=== PATIENT | female | born 1960 | race Caucasian/White ===

== ENCOUNTER → 2019-04-10 11:29 | Outpatient (BNVA) | payer MEDICAID, SELFPAY | PROVIDERS: Family Provider Family Medicine; PCP Family Medicine; Visit Provider Orthopaedic Surgery | DX: M79.605 Pain in left leg (principal); M79.652 Pain in left thigh; S70.12XA Contusion of left thigh, initial encounter; X58.XXXA Exposure to other specified factors, initial encounter | CPT/HCPCS: 73590 ==

== ENCOUNTER 2019-05-28 08:53 | Outpatient (CLI) | payer MEDICAID, SELFPAY ==
--- NOTE | 2019-05-28 | MR_ITS ---
WS: [id number] MR OF THE WITHOUT GADOLINIUM ENHANCEMENT LEFT FEMUR INDICATION: Left leg pain TECHNIQUE: Coronal T1, coronal STIR, sagittal T1, sagittal STIR, axial T2, axial PD, FINDINGS: Normal bone marrow signal in the left femur. No acute fractures. Small suprapatellar effusi on. Normal femoral head and neck. Normal left hip. Normal bone marrow signal in the right hip and fem ur. Soft tissue edema in the left mid thigh extending into the deep soft tissues presumably from prior tr auma with laceration repair. Deep to the subcutaneous edema in the anterior compartment are prominent ovoid shaped T2 hyperintense collections that appear to represent varicosities. 2 prominent adjacent lobular varicosities measure approximately 1.4 x 1.3 x 2.2 cm and 1.1 x 1.4 x 2.2 CM. These demonstr ate T2 hyperintensity with hemosiderin rim. Moderate degenerative arthritis both knees partially visualized worse in the medial joint compartment s. Small left knee effusion with medial compartment narrowing. Mild narrowing of the patellofemoral a rticulation. MR/MR femur LT wo con* [id number] IMPRESSION: 1. Evidence of prior deep soft tissue laceration along the left inner thigh wi th a small amount of subcutaneous edema. 2. Deep to the healed laceration are Two lobular ovoid shaped T2 hyperintense lesions with peripheral hemosiderin. This most likely represents varicosities f rom previous trauma. This can be followed up with ultrasound if continued shailesh rn to assess flow. 3. Bone marrow edema in the femoral shafts and hips bilaterally normal. No acu te fractures. 4. Small left knee effusion with a small amount of edema in the distal femoral condyles. This is partially visualized and likely degenerative. Degenerative a rthritis at the patellofemoral articulation. This could be followed up with kne e MRI if indicated.
== END 2019-05-28 08:54 | disposition home or self-care (01) ==
LOC: RADSHAW 08:54
PROVIDERS: Family Provider Family Medicine; PCP Family Medicine; Visit Provider Family Medicine
DX: M17.12 Unilateral primary osteoarthritis, left knee (principal); M25.462 Effusion, left knee; M79.605 Pain in left leg
CPT/HCPCS: 73718

== ENCOUNTER 2019-12-03 10:38 | Outpatient (CLI) | payer MEDICAID, SELFPAY ==
--- NOTE | 2019-12-03 11:04 | MR_ITS ---
WS: [id number] MRI LUMBAR SPINE NONCONTRAST TECHNIQUE: Sagittal T1, T2 and STIR imaging. Axial T1 and T2 imaging. CLINICAL INFORMATION: FRACTURE COMPARISON: MRI FINDINGS: Mild lumbar curve. No acute compression involving the superior endplate L1 with fracture cleft. No re tropulsion. This is new since 2019. Mild loss vertebral body height. Chronic compression of the T11 v ertebral body with vertebroplasty changes. This is partially visualized. L1-L2: Normal. L2-L3: Mild annular bulging. Slight narrowing of the left subarticular recess. Mild left foraminal na rrowing. Mild facet arthropathy. L3-L4: No significant disc bulging. Mild facet arthropathy. Spinal canal and foramen are patent. L4-L5: Mild annular bulging with slight effacement of the ventral thecal sac. Impingement on the left greater than right traversing L5 nerve roots. Mild facet arthropathy. Foramen are patent. L5-S1: Mild annular bulging. Mild facet arthropathy. Spinal canal and foramen are patent. Visualized pelvic bony structures: Normal. Paravertebral soft tissues: Normal. MR/MR lumbar spine wo con* [id number] IMPRESSION: 1. Mild compression superior endplate L1 with diffuse edema has an acute appea tiffanie. Fracture cleft superior endplate with minimal loss vertebral body height . No retropulsion. This is new since 2019. 2. Mild annular bulging L4-5 with slight narrowing of the left subarticular re cess and encroachment on traversing left L5 nerve root. 3. Moderate facet arthropathy L4-L5 and L5-S1.
== END 2019-12-03 10:39 | disposition home or self-care (01) ==
LOC: RADWPI 10:42
PROVIDERS: Family Provider Family Medicine; PCP Family Medicine; Visit Provider Anesthesiology Pain Medicine
DX: S32.010A Wedge compression fracture of first lumbar vertebra, initial encounter for closed fracture (principal); X58.XXXA Exposure to other specified factors, initial encounter; R60.0 Localized edema; M47.816 Spondylosis without myelopathy or radiculopathy, lumbar region; M47.817 Spondylosis without myelopathy or radiculopathy, lumbosacral region
CPT/HCPCS: 72148

== ENCOUNTER → 2020-06-23 11:37 | Outpatient (BNVA) | payer MEDICAID, SELFPAY | PROVIDERS: PCP Family Medicine; Visit Provider Specialist | DX: M79.605 Pain in left leg (principal) | CPT/HCPCS: 73552; 73590 ==

== ENCOUNTER → 2021-09-16 11:09 | Outpatient (BNVA) | payer MEDICAID, SELFPAY | PROVIDERS: PCP Family Medicine; Referring Provider Nurse Practitioner Family; Visit Provider Podiatrist Foot & Ankle Surgery | DX: M72.2 Plantar fascial fibromatosis (principal); M21.611 Bunion of right foot | CPT/HCPCS: 20550; 20610; 73630; 99203; 99204; J1100; J3301; J3490 ==

== ENCOUNTER 2021-09-16 14:52 | Outpatient (CLI) | payer MEDICAID, SELFPAY | END 2021-09-16 14:53 | disposition home or self-care (01) | LOC: SPT 14:54 | PROVIDERS: PCP Family Medicine; Visit Provider Podiatrist Foot & Ankle Surgery | DX: Z46.89 Encounter for fitting and adjustment of other specified devices (principal); M72.2 Plantar fascial fibromatosis | CPT/HCPCS: 97760; L4397 ==

== ENCOUNTER 2021-11-09 05:34 | Day surgery (SDC) | payer MEDICAID, SELFPAY ==
[2021-11-05 13:10] VITALS: BMI 25.7
[2021-11-09 06:19] VITALS: BP 134/81; PULSE 62; RESP 18; TEMP 36.6; O2SAT 99
[2021-11-09] MEDS: sodium chloride 0.9% 1,000 ML 30 ML IV (06:27)
--- NOTE | 2021-11-09 06:53 | P.ANESASSM_ITS ---
Pre-Anesthetic Assessment Height/Weight: Height 1.6 m Weight 65.771 kg Temp Pulse Resp BP Pulse Ox O2 Del Method 97.8 F 62 18 134/81 99 11/09/21 06:19 11/09/21 06:19 11/09/21 06:19 11/09/21 06:19 11/09/21 06:19 11/09/21 06:19 Preop Diagnosis: Abd Pain Operation Date: 11/09/21 07:00 Proposed Procedures p EGD and colonoscopy [id number],R14.0(Not Applicable) - Alvaro Beverly MD s Colonoscopy(Not Applicable) - Alvaro Beverly MD Was Beta Jenna taken within 24 hours: N/A Was Clonidine taken within 24 hours: N/A Last intake: Intake Last Liquid Date 11/08/21 Last Liquid Time 22:00 Last Solid Date 11/07/21 Last Solid Time 20:00 Social Tobacco and No alcohol 1 pack(s) per day 20 pack years Exam alert, oriented x 3, clear to auscultation bilaterally and regular rate & rhythm Airway Submandibular: within normal limits Mallampati: Class II Dentition: full History/ROS No significant history except as noted Pulmonary None reported CV/HEM Hypertension None reported Hepatic None reported GI abdominal pain Metabolic None reported Musc/skel None reported Neuropsych None reported Anesthetic Plan ASA status: 2 Anesthesia: Anesthesia Evaluation and MAC Medications/Allergies Home Medications Medication Instructions Recorded Confirmed Last Taken Type albuterol 90 mcg/actuation aerosol 108 mcg inhalation .2 puffs PRN 03/07/19 11/05/21 Unknown History inhaler Allergy Symptoms cyclobenzaprine 10 mg tablet 10 mg PO TID PRN Muscle Spasm 03/07/19 11/05/21 Unknown History gabapentin 300 mg capsule 300 mg PO TID 03/07/19 11/09/21 11/09/21 History ibuprofen 800 mg tablet 800 mg PO Q8H PRN Pain 03/07/19 11/05/21 Unknown History ondansetron HCl 4 mg tablet 4 mg PO BID PRN Nausea 03/07/19 11/05/21 Unknown History (Zofran) oxycodone-acetaminophen 10 mg-325 1 tab PO TID PRN Pain 04/10/19 11/05/21 11/08/21 History mg tablet (Percocet) furosemide 20 mg tablet 10 mg PO QAM 09/16/21 11/05/21 Unknown History night splint #1 ea 09/16/21 11/03/21 Unknown Rx omeprazole 40 mg capsule,delayed 40 mg PO DAILY 09/16/21 11/05/21 11/08/21 History release oxybutynin chloride 5 mg tablet 5 mg PO DAILY 09/16/21 11/05/21 Unknown History alprazolam 0.5 mg tablet (Xanax) 0.5 mg PO BID 10/09/21 11/09/21 11/09/21 History azelastine 137 mcg (0.1 %) nasal 2 spray intranasal BID PRN Allergy 10/09/21 11/05/21 Unknown History spray aerosol Symptoms trazodone 100 mg tablet 100 mg PO DAILY 10/09/21 11/09/21 11/07/21 History triamcinolone acetonide 0.5 % 1 applic topical BID PRN Rash 10/09/21 11/05/21 Unknown History topical cream valacyclovir 500 mg tablet 500 mg PO DAILY 10/09/21 11/05/21 11/08/21 History (Valtrex) bupropion HCl 100 mg tablet 200 mg PO DAILY 11/03/21 11/05/21 11/08/21 History bisacodyl 5 mg tablet,delayed 5 mg PO DIRECTED 11/09/21 11/09/21 11/08/21 History release (Dulcolax (bisacodyl)) Allergies Allergy/AdvReac Type Severity Reaction Status Date / Time No Known Allergies Allergy Verified 11/05/21 13:04 Current Medications Generic Name Dose Route Start Last Admin Trade Name Vernq PRN Reason Stop Dose Admin Sodium Chloride 1,000 mls @ 30 mls/hr 11/09/21 06:15 11/09/21 06:27 Sodium Chloride 0.9% IV 11/10/21 06:14 30 mls/hr .Q24H CHRISTINE Administration PFSH Anesthesia Medical History Open fracture of shaft of left tibia Status post fracture of tibia Family History Denies family history of Anesthesia complication Bleeding disorder Social History Smoking and tobacco status: current every day smoker cigarettes Packs smoked per day: 1 Quit status (tobacco): has tried quititng Second hand smoke exposure: Yes Smoking risk assessment/counseling performed?: No Alcohol intake: never Desire information about substance/drug rehabilitation?: No Adopted: No Caregiver/support person: Yes Lives independently: Yes Household members: spouse and significant other Housing: House Marital status: Highest education level completed: High School Graduate service: No Current occupational status: disabled Current occupational exposures/hazards: No Pets and animals: No History of recent travel: No Sexually active: Yes Current gender identity: Female Chela/Anglican: Mormonism Special chela needs: No Agree to transfusion: No Financial difficulty paying for basics: Not Very Hard Data Anesthesia Cardiac Studies: No Data to Display
--- NOTE | 2021-11-09 07:30 | P.HP_ITS ---
Same Day Surgery H&P Indication for Procedure/HPI DATE OF PROCEDURE: November 09, 2021 CHIEF COMPLAINT/INDICATIONFOR SURGICAL PROCEDURE: Screening and abdominal pain. PREOP DIAGNOSIS: Abd Pain PLANNED PROCEDURE: Operation Date: 11/09/21 07:00 Proposed Procedures p EGD and colonoscopy [id number],R14.0(Not Applicable) - Alvaro Beverly MD s Colonoscopy(Not Applicable) - Alvaro Beverly MD Medications/Allergies* Home Medications Medication Instructions Recorded Confirmed Type albuterol 90 mcg/actuation aerosol 108 mcg inhalation .2 puffs PRN 03/07/19 11/05/21 History inhaler Allergy Symptoms cyclobenzaprine 10 mg tablet 10 mg PO TID PRN Muscle Spasm 03/07/19 11/05/21 History gabapentin 300 mg capsule 300 mg PO TID 03/07/19 11/09/21 History ibuprofen 800 mg tablet 800 mg PO Q8H PRN Pain 03/07/19 11/05/21 History ondansetron HCl 4 mg tablet 4 mg PO BID PRN Nausea 03/07/19 11/05/21 History (Zofran) oxycodone-acetaminophen 10 mg-325 1 tab PO TID PRN Pain 04/10/19 11/05/21 History mg tablet (Percocet) furosemide 20 mg tablet 10 mg PO QAM 09/16/21 11/05/21 History omeprazole 40 mg capsule,delayed 40 mg PO DAILY 09/16/21 11/05/21 History release oxybutynin chloride 5 mg tablet 5 mg PO DAILY 09/16/21 11/05/21 History alprazolam 0.5 mg tablet (Xanax) 0.5 mg PO BID 10/09/21 11/09/21 History azelastine 137 mcg (0.1 %) nasal 2 spray intranasal BID PRN Allergy 10/09/21 11/05/21 History spray aerosol Symptoms trazodone 100 mg tablet 100 mg PO DAILY 10/09/21 11/09/21 History triamcinolone acetonide 0.5 % 1 applic topical BID PRN Rash 10/09/21 11/05/21 History topical cream valacyclovir 500 mg tablet 500 mg PO DAILY 10/09/21 11/05/21 History (Valtrex) bupropion HCl 100 mg tablet 200 mg PO DAILY 11/03/21 11/05/21 History bisacodyl 5 mg tablet,delayed 5 mg PO DIRECTED 11/09/21 11/09/21 History release (Dulcolax (bisacodyl)) Allergies/Adverse Reactions Allergy/AdvReac Type Severity Reaction Status Date / Time No Known Allergies Allergy Verified 11/05/21 13:04 Current Medications: Generic Name Dose Route Start Last Admin Trade Name Ami PRN Reason Stop Dose Admin Sodium Chloride 1,000 mls @ 30 mls/hr 11/09/21 06:15 11/09/21 06:27 Sodium Chloride 0.9% IV 11/10/21 06:14 30 mls/hr .Q24H CHRISTINE Administration Pertinent History/Comorbid Conditions* Medical History (Updated 11/03/21 @ 13:56 by Alvaro Beverly MD) Open fracture of shaft of left tibia Status post fracture of tibia Family History (Updated 03/07/19 @ 12:23 by Nieves Hartley RN) Denies family history of Anesthesia complication Bleeding disorder Social History Smoking and tobacco status: current every day smoker cigarettes Packs smoked per day: 1 Quit status (tobacco): has tried quititng Second hand smoke exposure: Yes Smoking risk assessment/counseling performed?: No Alcohol intake: never Desire information about substance/drug rehabilitation?: No Adopted: No Caregiver/support person: Yes Lives independently: Yes Household members: spouse and significant other Housing: House Marital status: Highest education level completed: High School Graduate service: No Current occupational status: disabled Current occupational exposures/hazards: No Pets and animals: No History of recent travel: No Sexually active: Yes Current gender identity: Female Chela/Restorationist: Hoahaoism Special chela needs: No Agree to transfusion: No Financial difficulty paying for basics: Not Very Hard Pertinent Exam Findings alert, oriented x 3, clear to auscultation bilaterally, regular rate & rhythm, operative site marked and procedure specific exam findings Recommendations Surgery/Procedure today Coding Level of Care Code Acute Camera Control Operator for Maldonado Mantilla
[2021-11-09 07:52] VITALS: BP 130/77; PULSE 71; RESP 16; TEMP 36.1; O2SAT 97
[2021-11-09 08:07] VITALS: BP 134/92; PULSE 67; RESP 18; O2SAT 100
--- NOTE | 2021-11-09 08:59 | XRR_ITS ---
PROCEDURE INFORMATION: Exam: XR Abdomen Exam date and time: 11/09/2021 9:18 AM Age: 60 years old Clinical indication: Abdominal pain; Generalized; Additional info: Pain post colonoscopy TECHNIQUE: Imaging protocol: Radiologic exam of the abdomen. Views: Frontal supine view of the abdomen. 1 View. COMPARISON: CT chest abd pel w con* 12/05/2018 7:45 PM FINDINGS: Gastrointestinal tract: Mild gaseous distention of small and large bowel loops. Bones/joints: Changes of prior vertebral augmentation of a lower thoracic vertebral body. XR/XR abdomen 1V* [id number] IMPRESSION: Mild gaseous distention of small and large bowel loops may reflect an ileus.
--- NOTE | 2021-11-09 09:00 | PC.NURSE ---
Pt c/o abdominal pain post egd/colon, abd. soft bowel sounds active. Had small BM after colon. Denies passing gas with BM. Dr Beverly assessed pt and ordered xray of abd. Education provided to patient and spouse, verbalized understanding.
--- NOTE | 2021-11-09 09:29 | PC.NURSE ---
Pt will another BM and passing gas on commode. Pt still reports pain, is able to tolerate ice chips and denies nausea. Xray obtained, awaiting results. Rush updated in scope room.
--- NOTE | 2021-11-09 09:55 | PC.NURSE ---
Pt able to pass more air when offered rectal tube per Dr Beverly. Xray negative for free air. Pt taken to personal vehicle via WC with all personal belongings. Verbalized abd. pain improving.
--- NOTE | 2021-11-09 14:07 | ANE.PACU2 ---
Inpatient post-anesthesia follow up: Airway intact: Yes Vital signs: Temperature 97.0 F Pulse Rate 67 Respiratory Rate 18 Blood Pressure 134/92 Pulse Oximetry 100 Oxygen Delivery Me thod Room Air Oxygen Flow Rate 4 Fraction of Inspir ed Oxygen Hydration adequate: Yes Nausea and vomiting: No Pain level: 1 Mental status: Baseline
[2021-11-10 10:17] LABS: H. Pylori / CLO Test Negative
== END 2021-11-09 09:57 | disposition home or self-care (01) ==
PROVIDERS: PCP Family Medicine; Visit Provider Internal Medicine
PROC: 0DJ08ZZ Inspection of Upper Intestinal Tract, Via Natural or Artificial Opening Endoscopic (ICD-10-PCS; CPT 43235; principal; 2021-11-09 07:00)
PROC: 0DJD8ZZ Inspection of Lower Intestinal Tract, Via Natural or Artificial Opening Endoscopic (ICD-10-PCS; CPT 45378; 2021-11-09 07:00)
DX: R14.0 Abdominal distension (gaseous) (principal); K44.9 Diaphragmatic hernia without obstruction or gangrene; K29.70 Gastritis, unspecified, without bleeding; I10 Essential (primary) hypertension; F17.210 Nicotine dependence, cigarettes, uncomplicated
CPT/HCPCS: 43239; 45378; 74018; 87077; J2704; J7030

== ENCOUNTER → 2021-11-25 12:55 | Outpatient (BNVA) | payer MEDICAID, SELFPAY | PROVIDERS: PCP Family Medicine; Visit Provider Podiatrist Foot & Ankle Surgery | DX: M72.2 Plantar fascial fibromatosis (principal) | CPT/HCPCS: 20550; J1100; J3301; J3490 ==

== ENCOUNTER 2021-11-30 14:36 | Observation (INO) | payer MEDICAID, SELFPAY ==
[2021-11-30] VITALS (54 sets, daily range): BP systolic 107–197; BP diastolic 65–86; PULSE 40–149; RESP 14–33; TEMP 36.4–36.6; O2SAT 95–100; BMI 25.7; BMI 27.3
--- NOTE | 2021-11-30 14:45 | XRR_ITS ---
PROCEDURE INFORMATION: Exam: XR Chest Exam date and time: 11/30/2021 3:04 PM Age: 61 years old Clinical indication: Cough and dyspnea; Patient HX: Chest pain, pressure SOB, high BP; Additional info: Dyspnea/cough TECHNIQUE: Imaging protocol: Radiologic exam of the chest. Views: 1 view. COMPARISON: CT chest abd pel w con* 12/05/2018 7:45 PM FINDINGS: Lungs: Lungs are clear bilaterally. Pleural spaces: No pleural effusion. No pneumothorax. Heart/Mediastinum: The cardiac silhouette and mediastinal contours are unremarkable. Bones/joints: Patient has had a prior kyphoplasty procedure at T11. Other findings: Patient has a navel piercing. XR/XR chest 1V portable [id number] IMPRESSION: 1. No acute cardiopulmonary process. 2. Incidental/nonacute findings are listed in the report.
--- NOTE | 2021-11-30 14:45 | ECG_ITS ---
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 Measurements Intervals [place] Rate: 78 P: 64 MI: 153 QRS: 32 QRSD: 83 T: 42 QT: 383 QTc: 438 Interpretive Statements SINUS RHYTHM WITH FREQUENT ECTOPIC PREMATURE COMPLEXES IN A BIGEMINAL PATTERN ABNORMAL RHYTHM ECG Compared to ECG 12/05/2018 22:19:50 T-wave abnormality no longer present Electronically Signed On 11-30-2021 21:25:38 CDT by Mark Solis M.D. [email or web address] Venturesmer[facility].Shake/store/OM/[id number]
[2021-11-30 15:06] LABS: Basophils # 0.1 10^3/uL (0.0-0.1); Basophils % 0.8 %; Eosinophils # 0.1 10^3/uL (0.0-0.8); Eosinophils % 1.3 %; Hematocrit 49.6 % (37.0-47.0); Hemoglobin 16.1 g/dL (11.5-15.3); Lymphocytes % 39.6 %; Mean Corpuscular HGB Conc 32.5 g/dL (30.0-36.0); Mean Corpuscular Hemoglobin 31.1 pg (28.0-34.0); Mean Corpuscular Volume 95.8 fl (81-99); Mean Platelet Volume 10.3 fL (7.4-10.4); Monocytes # 0.5 10^3/uL (0.2-0.9); Monocytes % 7.2 %; Neutrophils # 3.81 10^3/uL (1.8-7.7); Neutrophils % 50.7 %; Nucleated Red Blood Cells % 0 %; Platelet Count 300 10^3/cmm (130-400); Red Blood Count 5.18 10^6/uL (4.1-5.3); Red Cell Distribution Width 13.2 % (12.1-15.1); White Blood Count 7.5 10^3/uL (4.0-10.0)
--- NOTE | 2021-11-30 15:17 | W.ED.CHESTPA ---
HPI - Chest Pain General: Chief Complaint: Chest Pain Stated Complaint: Sent from ENT dizzy/sob/chest pressure Time Seen by Provider: 11/30/21 14:44 Source: patient Mode of arrival: ambulatory History of Present Illness: 61-year-old male presents emergency room complaining of bradycardia. She went to ENT today and was complaining some dizziness shortness of breath chest discomfort. When I evaluated her baseline vitals they found her heart rate in the 40s she was complaining of some dizziness and chest discomfort. She has not had that previously on arrival here [facility] a palpable pulse in the 40s. PFS ED PFSH: Medical History Abdominal bloating Abdominal pain Anxiety and depression Benign liver cyst Coccygodynia Fibromyalgia Genital herpes Hematoma Open fracture of shaft of left tibia Osteoarthritis Status post fracture of tibia Surgical History History of 3 sections History of carpal tunnel repair History of knee surgery (~01/2019) S/P breast augmentation Family History Denies family history of Anesthesia complication Bleeding disorder Social History Smoking and tobacco status: current every day smoker cigarettes Packs smoked per day: 1 Quit status (tobacco): has tried quititng Second hand smoke exposure: Yes Smoking risk assessment/counseling performed?: No Alcohol intake: never Desire information about substance/drug rehabilitation?: No Adopted: No Caregiver/support person: Yes Lives independently: Yes Household members: spouse and significant other Housing: House Marital status: Highest education level completed: High School Graduate service: No Current occupational status: disabled Current occupational exposures/hazards: No Pets and animals: No History of recent travel: No Sexually active: Yes Current gender identity: Female Chela/Anabaptist: Restoration Special chela needs: No Agree to transfusion: No Financial difficulty paying for basics: Not Very Hard Course Vital Signs: Vital signs: Vital Signs Temperature 98 F 11/30/21 14:44 Pulse Rate 40 L 11/30/21 14:44 Respiratory Rate 18 11/30/21 14:44 Blood Pressure 197/65 11/30/21 14:44 Pulse Oximetry 99 11/30/21 14:44 Oxygen Delivery Me thod 11/30/21 14:44 MDM - Chest Pain Medical Decision Making Patient having bigeminy with a effective heart rate in the 30s. Discussed with hospitalist will admit consult cardiology. Dr. Pollock will contact them orders written Medical Records I reviewed the patient's medical records. Lab Data I reviewed the patient's lab results. : 11/30/21 14:55 11/30/21 14:55 Radiology Impressions Chest X-Ray 11/30/21 14:45 IMPRESSION: 1. No acute cardiopulmonary process. 2. Incidental/nonacute findings are listed in the report. Laboratory Results WBC 7.5 10^3/uL (4.0-10.0) 11/30/21 14:55 RBC 5.18 10^6/uL (4.1-5.3) 11/30/21 14:55 Hgb 16.1 g/dL (11.5-15.3) H 11/30/21 14:55 Hct 49.6 % (37.0-47.0) H 11/30/21 14:55 MCV 95.8 fl (81-99) 11/30/21 14:55 MCH 31.1 pg (28.0-34.0) 11/30/21 14:55 MCHC 32.5 g/dL (30.0-36.0) 11/30/21 14:55 RDW 13.2 % (12.1-15.1) 11/30/21 14:55 Plt Count 300 10^3/cmm (130-400) 11/30/21 14:55 MPV 10.3 fL (7.4-10.4) 11/30/21 14:55 Neut % (Auto) 50.7 % 11/30/21 14:55 Lymph % (Auto) 39.6 % 11/30/21 14:55 [place] % (Auto) 7.2 % 11/30/21 14:55 Eos % (Auto) 1.3 % 11/30/21 14:55 Baso % (Auto) 0.8 % 11/30/21 14:55 Neut # (Auto) 3.81 10^3/uL (1.8-7.7) 11/30/21 14:55 Lymph # (Auto) 3.0 10^3/uL (0.8-4.8) 11/30/21 14:55 [place] # (Auto) 0.5 10^3/uL (0.2-0.9) 11/30/21 14:55 Eos # (Auto) 0.1 10^3/uL (0.0-0.8) 11/30/21 14:55 Baso # (Auto) 0.1 10^3/uL (0.0-0.1) 11/30/21 14:55 Nucleated RBC % (auto) 0 % 11/30/21 14:55 Nucleated RBCs # 0.0 /100WBC 11/30/21 14:55 Sodium 140 mmol/L (136-145) 11/30/21 14:55 Potassium 4.0 mmol/L (3.5-5.1) 11/30/21 14:55 Chloride 101 mmol/L (98-107) 11/30/21 14:55 Carbon Dioxide 24 mmol/L (22-29) 11/30/21 14:55 Anion Gap 19.0 (5-19) 11/30/21 14:55 BUN 15 mg/dL (8-23) 11/30/21 14:55 Creatinine 0.7 mg/dL (0.5-0.9) 11/30/21 14:55 GFR Calculation 85.4 mL/min (90-130) L 11/30/21 14:55 Glucose 75 mg/dL (65-115) 11/30/21 14:55 Calculated Osmolality 290 mOsm/kg (285-295) 11/30/21 14:55 Calcium 10.0 mg/dL (8.5-10.5) 11/30/21 14:55 Total Bilirubin 0.3 mg/dL (0.15-1.2) 11/30/21 14:55 AST 16 U/L (0-32) 11/30/21 14:55 ALT 14 U/L (0-33) 11/30/21 14:55 Alkaline Phosphatase 84 U/L (35-105) 11/30/21 14:55 Troponin T Baseline 7 ng/L (0-10) 11/30/21 14:55 Total Protein 8.1 g/dL (6.6-8.7) 11/30/21 14:55 Albumin 4.2 g/dL (3.5-5.2) 11/30/21 14:55 Globulin 3.9 g/dL (1.3-4.6) 11/30/21 14:55 TSH 3.20 uIU/mL (0.27-4.20) 11/30/21 14:50 Free T4 1.02 ng/dL (0.82-1.77) 11/30/21 14:50 Discharge Plan Discharge Patient Disposition: Placed in Observation Clinical Impression: Bradycardia, Chest pain, Bigeminal rhythm Condition: Stable Prescriptions: No Action gabapentin 300 mg capsule 300 mg PO TID alprazolam [Xanax] 0.5 mg tablet 0.5 mg PO BID oxycodone-acetaminophen [Percocet] 10-325 mg tablet 1 tab PO TID PRN (Reason: Pain) (DME) night splint See Rx Instructions .Route .MEDSUPPLY Qty: 1 0RF Rx Instructions: As directed oxybutynin chloride 5 mg tablet 5 mg PO DAILY bupropion HCl 100 mg tablet 200 mg PO DAILY azelastine 137 mcg (0.1 %) aerosol,spray 2 spray intranasal BID PRN (Reason: Allergy Symptoms) Rx Instructions: administer into each nostril triamcinolone acetonide 0.5 % cream 1 applic topical BID PRN (Reason: Rash) valacyclovir [Valtrex] 500 mg tablet 500 mg PO DAILY bisacodyl [Dulcolax (bisacodyl)] 5 mg tablet,delayed release (DR/EC) 5 mg PO DIRECTED Rx Instructions: 6x a day furosemide 20 mg tablet 20 mg PO DAILY PRN (Reason: Edema) albuterol sulfate 90 mcg/actuation Hfa Aerosol Inhaler 2 puff INHALATION QID PRN (Reason: Shortness Of Breath Or Wheezing) ondansetron 4 mg tablet,disintegrating 4 mg PO BID PRN (Reason: Nausea And Vomiting) cetirizine 10 mg Tablet 10 mg PO DAILY omeprazole 40 mg Capsule,Delayed Release(Dr/Ec) 40 mg PO DAILY Referrals: Tulio Valente [Primary Care Provider] - Coding Level of Care Code 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
[2021-11-30 15:33] LABS: Alanine Aminotransferase 14 U/L (0-33); Albumin Level 4.2 g/dL (3.5-5.2); Alkaline Phosphatase 84 U/L (35-105); Blood Urea Nitrogen 15 mg/dL (8-23); Carbon Dioxide 24 mmol/L (22-29); Chloride 101 mmol/L (98-107); Globulin 3.9 g/dL (1.3-4.6); Glomerular Filtration Rate 85.4 mL/min (90-130); Glucose 75 mg/dL (65-115); Osmolality Calculated 290 mOsm/kg (285-295); Sodium 140 mmol/L (136-145); Total Bilirubin 0.3 mg/dL (0.15-1.2); Total Protein 8.1 g/dL (6.6-8.7)
[2021-11-30 15:34] LABS: Troponin(5th) Baseline 7 ng/L (0-10)
[2021-11-30 15:53] LABS: Aspartate Amino Transferase 16 U/L (0-32)
--- NOTE | 2021-11-30 16:49 | ECG_ITS ---
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 Measurements Intervals [place] Rate: 69 P: 75 MS: 149 QRS: 26 QRSD: 94 T: 34 QT: 396 QTc: 425 Interpretive Statements SINUS RHYTHM WITH FREQUENT VENTRICULAR PREMATURE COMPLEXES IN A BIGEMINAL PATTERN ABNORMAL RHYTHM ECG Compared to ECG 11/30/2021 14:57:06 Ventricular premature complex(es) now present Electronically Signed On 11-30-2021 21:34:51 CDT by Mark Solis M.D. [email or web address]/store/OM/[id number]
[2021-11-30 17:09] LABS: Free T4 Free Thyroxine 1.02 ng/dL (0.82-1.77)
[2021-11-30 17:23] LABS: Add Urine Microscopic? NO; Charge for UA Resulting for Rev
[2021-11-30 17:27] LABS: Bilirubin Urine Neg (Negative); Blood Urine Neg (Negative); Glucose Urine UA Norm (Normal); Ketones Urine Negative (Negative); Leukocyte Esterase Urine Negative (Negative); Nitrate Urine Negative (Negative); Protein Urine Neg (Negative); Specific Gravity, Urine 1.005 (1.005-1.030); Urine Appearance Clear (CLEAR); Urine Color Straw (Yellow); Urobilinogen Urine Norm (Negative); pH Urine 6.5 (5-7)
[2021-11-30 17:30] LABS: Troponin 5 2HR 6.21 ng/L (0-10)
[2021-11-30 17:32] LABS: Troponin 5 2HR Delta -0.79 ABS# (0-10)
--- NOTE | 2021-11-30 18:23 | USCV_ITS ---
Morelia Rapp Age: 61 Gender: F : 1960 Exam Date: 11/30/2021 19:31 Ordering Phys: Salvador Pollock MD Technologist: DARVIN Exam Location: [facility] [place] Indication: bradycardia PVCs, No history of cardiac intervention per patient. BP: 197 / 65 HR: 77 Rhythm: Sinus rhythm with frequent PVCs Technical Quality: Adequate MEASUREMENTS (Male / Female) Normal Values 2D ECHO LV Diastolic Diameter PLAX 4.1 cm 4.2 - 5.9 / 3.9 - 5.3 cm LV Systolic Diameter PLAX 3.2 cm IVS Diastolic Thickness 1.3 cm 0.6 - 1.0 / 0.6 - 0.9 cm IVS Systolic Thickness 1.6 cm LVPW Diastolic Thickness 1.0 cm 0.6 - 1.0 / 0.6 - 0.9 cm LVPW Systolic Thickness 1.2 cm LVOT Diameter 1.7 cm LV Ejection Fraction 2D Teich 46.0 % LV Ejection Fraction MOD 2C 64.9 % LV Ejection Fraction 2C AL 66.1 % LA Diameter 3.6 cm LA Width 2.7 cm LA Height 4.2 cm RA Width 3.2 cm RA Height 3.5 cm Aorta at Sinotubular Diameter 2.6 cm IVC Diameter 1.8 cm M-MODE Aortic Annulus Diameter 2.4 cm LA Ao Ratio MM 1.5 MV E Point Septal Separation 0.4 cm DOPPLER AV Peak Velocity 152.0 cm/s LVOT Peak Velocity 133.0 cm/s AV Area Cont Eq vti 1.8 cm squared AV Area Cont Eq pk 2.0 cm squared MV Peak Velocity 99.0 cm/s MV Area PHT 4.4 cm squared Mitral E to A Ratio 1.1 MV E' Velocity 55.0 cm/s Mitral E to MV E' Ratio 9.7 Mitral E to LV E' Lateral Ratio 9.1 Mitral E to LV E' Septal Ratio 10.3 TR Peak Velocity 221.0 cm/s TR Peak Gradient 19.5 mmHg TV Peak E Velocity 33.0 cm/s Right Atrial Pressure 5.0 mmHg Pulmonary Artery Systolic Pressu 24.5 mmHg PV Peak Velocity 100.0 cm/s RV Acceleration Time 0.1 s RV Ejection Time 0.3 s RV AcT/ET 0.4 FINDINGS Left Ventricle Left ventricle is normal in size. LV systolic function is normal with EF 55 to 60%. No regional wall motion abnormalities are seen Right Ventricle Normal in size and function Right Atrium Normal in size Left Atrium Normal in size Mitral Valve Structurally normal mitral valve. Mild mitral regurgitation Aortic Valve Structurally normal aortic valve. Mild aortic regurgitation. No significant stenosis Tricuspid Valve Mild tricuspid regurgitation. Insufficient TR jet to calculate RVSP. Pulmonic Valve Not well-visualized Pericardium Normal Aorta Normal in size IVC Appears to be normal CONCLUSIONS LV systolic function is normal with EF of 55-60% Mild mitral regurgitation Mild aortic regurgitation Mild tricuspid regurgitation No comparison studies are available Gene Griffin MD (Electronically Signed) Final Date: 01 December 2021 09:27 S
--- NOTE | 2021-11-30 18:35 | P.HP_ITS ---
Providers/Chief Complaint Primary Care Provider: Tulio Valente Chief Complaint: Sent from ENT dizzy/sob/chest pressure History of Present Illness Pleasant 61-year-old lady was referred for elevation injury ER from ENT office where she was found to have low pulse rate. Denies known prior history with abnormal heart rhythms, denies any other cardiac history. Reports that recently has noticed fatiguing easily. Denies any overt symptoms of lightheadedness with standing up or walking. Denies chest pain or pressure. Does state that intermittently falls down, sometimes thinks may lose consciousness for a brief moment waking up when she is already down not remembering falling. Reports that she has been in the morning ever since losing her daughter 11 months ago. Reports after that was started on Wellbutrin, states felt unwell feeling very weak, dizzy after starting Wellbutrin. States that due to how unwell she felt she cut down the dose herself down from 400 mg to 200 mg. She otherwise has been doing with stress after her daughter , but denies other medication changes recently. Denies having any antibiotics recently for sinusitis. Denies any tick bites. In ER she has frequent episodes of bigeminy with sinus beat followed by PVC with compensatory pause, with effective pulse rate 36-40 bpm during the episodes. Does not appear to be lightheaded standing up for a minute or 2, but when sitting down afterward states feeling slow heartbeat in her neck. Review of Systems Const: Reports: fatigue; Denies: fever(s), chills or body aches Eyes: Denies: change in vision, eye discomfort or eye redness ENMT: Reports: nasal congestion and sinus pain; Denies: throat pain, oral sores or ear or mastoid pain Card: Denies: chest pain, edema, pre-syncope or dyspnea on exertion Resp: Denies: dyspnea, productive cough, change in phlegm color or hemoptysis GI: Denies: abdominal pain, nausea, vomiting, diarrhea, constipation, hematochezia or melena : Denies: flank pain, urinary frequency or hematuria Musc: Denies: back pain, joint swelling or joint redness Skin/Breast: Denies: rash or new lesions Neuro: Denies: headache(s), numbness in extremities, weakness in extremities, dizziness, confusion or seizure-like activity Endo: Denies: polyuria or polydipsia Oral/Lymph: Denies: easy bleeding or tender lymph nodes All/Imm: Denies: urticaria or tongue swelling Medications/Allergies Home Medications Medication Instructions Recorded Confirmed Last Taken Type gabapentin 300 mg capsule 300 mg PO TID 03/07/19 11/30/21 11/30/21 History oxycodone-acetaminophen 10 mg-325 1 tab PO TID PRN Pain 04/10/19 11/30/21 11/29/21 History mg tablet (Percocet) night splint #1 ea 09/16/21 11/30/21 Unknown Rx oxybutynin chloride 5 mg tablet 5 mg PO DAILY 09/16/21 11/30/21 Unknown History alprazolam 0.5 mg tablet (Xanax) 0.5 mg PO BID 10/09/21 11/30/21 11/30/21 History azelastine 137 mcg (0.1 %) nasal 2 spray intranasal BID PRN Allergy 10/09/21 11/30/21 Unknown History spray aerosol Symptoms triamcinolone acetonide 0.5 % 1 applic topical BID PRN Rash 10/09/21 11/30/21 Unknown History topical cream valacyclovir 500 mg tablet 500 mg PO DAILY 10/09/21 11/30/21 11/30/21 History (Valtrex) bupropion HCl 100 mg tablet 200 mg PO DAILY 11/03/21 11/30/21 11/30/21 History bisacodyl 5 mg tablet,delayed 5 mg PO DIRECTED 11/09/21 11/30/21 11/30/21 History release (Dulcolax (bisacodyl)) albuterol sulfate 90 mcg/actuation 2 puff inhalation QID PRN 11/30/21 11/30/21 Unknown History aerosol inhaler Shortness Of Breath Or Wheezing cetirizine 10 mg tablet 10 mg PO DAILY 11/30/21 11/30/21 11/30/21 History furosemide 20 mg tablet 20 mg PO DAILY PRN Edema 11/30/21 11/30/21 Unknown History omeprazole 40 mg capsule,delayed 40 mg PO DAILY 11/30/21 11/30/21 11/30/21 History release ondansetron 4 mg disintegrating 4 mg PO BID PRN Nausea And Vomiting 11/30/21 11/30/21 Unknown History tablet Allergies Allergy/AdvReac Type Severity Reaction Status Date / Time No Known Allergies Allergy Verified 11/30/21 15:26 PFSH Acute PFSH: Medical History Abdominal bloating Abdominal pain Anxiety and depression Benign liver cyst Coccygodynia Fibromyalgia Genital herpes Hematoma Open fracture of shaft of left tibia Osteoarthritis Status post fracture of tibia Surgical History History of 3 sections History of carpal tunnel repair History of knee surgery (~01/2019) S/P breast augmentation Family History Denies family history of Anesthesia complication Bleeding disorder Social History Smoking and tobacco status: current every day smoker cigarettes Packs smoked per day: 1 Quit status (tobacco): has tried quititng Second hand smoke exposure: Yes Smoking risk assessment/counseling performed?: No Alcohol intake: never Desire information about substance/drug rehabilitation?: No Adopted: No Caregiver/support person: Yes Lives independently: Yes Household members: spouse and significant other Housing: House Marital status: Highest education level completed: High School Graduate service: No Current occupational status: disabled Current occupational exposures/hazards: No Pets and animals: No History of recent travel: No Sexually active: Yes Current gender identity: Female Chela/Muslim: Zoroastrianism Special chela needs: No Agree to transfusion: No Financial difficulty paying for basics: Not Very Hard Vitals/I&O/Wt Last Vital Signs Temp 98 F 11/30/21 14:44 Pulse 40 L 11/30/21 14:44 Resp 18 11/30/21 14:44 BP 197/65 11/30/21 14:44 Pulse Ox 99 11/30/21 14:44 O2 Del Method 11/30/21 14:44 Weight last 48 hrs Weight 65.771 kg Physical Exam Narrative: at bedside Const: COMMON NORMALS: patient oriented x3 and alert GENERAL APPEARANCE: cooperative ORIENTATION/CONSCIOUSNESS: Yes awake HENMT: COMMON NORMALS: oropharynx normal Neck/C-Spine: COMMON NORMALS: no JVD Resp: COMMON NORMALS: normal respiratory effort and clear to auscultation bilaterally AUSCULTATION: clear to auscultation bilaterally Cardio: COMMON NORMALS: no JVD, regular rhythm, S1 normal heart sound present, S2 normal heart sound present and No murmurs present (Cardio) RHYTHM: abnormal rhythm regularly irregular HEART SOUNDS: S1 normal heart sound present and S2 normal heart sound present GI: COMMON NORMALS: Normal to inspection, nondistended, normoactive bowel sounds present, Soft to palpation and non-tender PALPATION: Yes Soft to palpation Extremity: COMMON NORMALS: no joint enlargement and no pedal edema Neuro: COMMON NORMALS: patient oriented x3 and moves all extremities SENSORIUM/ORIENTATION: Yes alert Skin: COMMON NORMALS: no rashes or lesions noted GENERAL SKIN EXAM: no rashes or lesions noted Data : 11/30/21 14:55 11/30/21 14:55 A&P Assessment and plan (1) Slow pulse: Slow pulse, patient is symptomatic with easy fatigability. Some intermittent palpitations, when sat down after standing with slow pulse/bigeminy states felt her heartbeat in her throat. Complete troponin EKG series, so far not suggestive of ischemia. She is chest pain-free. Potassium is okay, TSH is normal. Discussed with her and her potentially Wellbutrin could contribute to premature beats. Will de-escalate to 100 mg daily, and she would like to stop entirely, discussed with her to stop after 4-5 days and follow-up with primary provider, consider follow-up with [facility] as she has been taking it due to depression after losing her daughter. Monitor on telemetry, will also obtain TTE to assess for structural abnormalities. Discussed with cardiology, appreciate assessment, with consideration of reducing PVCs. (2) Bigeminal rhythm: Plan Sinusitis: Acute versus chronic sinusitis. Will need to revisit ENT for follow- up. For now continue antihistamine as needed, saline spray as needed, Tylenol as needed, for now hold off antibiotic. Attestations Medical Necessity Statement*: Place in observation for additional assessment of low pulse rate, frequent bigeminal episodes, easy fatigability. Coding Level of Care Code Acute Fishing Vessel Operator for Chg Fwd Exam Comprehensive Diagnoses Slow pulse R00.1 Bigeminal rhythm I49.8
[2021-11-30 21:03] LABS: Troponin 5 6HR 6.21 ng/L (0-10)
[2021-11-30 21:17] LABS: Troponin 5 6HR Delta -0.79 ng/L (0-12)
[2021-11-30] MEDS: bisacodyl 5 mg Tablet PO (21:53)
[2021-11-30] MEDS: gabapentin 300 mg Capsule PO (21:53)
[2021-12-01] VITALS (8 sets, daily range): BP systolic 99–180; BP diastolic 53–85; PULSE 40–75; RESP 16–17; TEMP 36.4–37.1; O2SAT 96–100
[2021-12-01] MEDS: ALPRAZolam 0.5 mg Tablet PO ×3 (01:01→18:41)
[2021-12-01] MEDS: nicotine 14 mg Patch 1 PATCH TRANSDERMA ×2 (03:04→16:52)
[2021-12-01 05:21] LABS: Basophils # 0.1 10^3/uL (0.0-0.1); Basophils % 0.8 %; Eosinophils # 0.2 10^3/uL (0.0-0.8); Eosinophils % 2.3 %; Hematocrit 47.9 % (37.0-47.0); Hemoglobin 15.6 g/dL (11.5-15.3); Lymphocytes # 3.1 10^3/uL (0.8-4.8); Lymphocytes % 40.1 %; Mean Corpuscular HGB Conc 32.6 g/dL (30.0-36.0); Mean Corpuscular Hemoglobin 31.2 pg (28.0-34.0); Mean Corpuscular Volume 95.8 fl (81-99); Mean Platelet Volume 11.3 fL (7.4-10.4); Monocytes # 0.7 10^3/uL (0.2-0.9); Monocytes % 8.4 %; Neutrophils # 3.73 10^3/uL (1.8-7.7); Neutrophils % 48.1 %; Nucleated Red Blood Cells % 0 %; Platelet Count 224 10^3/cmm (130-400); Red Cell Distribution Width 13.3 % (12.1-15.1); White Blood Count 7.8 10^3/uL (4.0-10.0)
[2021-12-01] MEDS: acetaminophen 325 mg Tablet 650 MG PO (08:58)
[2021-12-01] MEDS: valACYclovir 1,000 mg Tablet 500 MG PO (08:58)
[2021-12-01] MEDS: cetirizine 10 mg Tablet PO (08:58)
[2021-12-01] MEDS: buPROPion SR (12 HR) 100 mg Tablet PO (08:58)
[2021-12-01] MEDS: gabapentin 300 mg Capsule PO ×3 (08:59→21:09)
[2021-12-01] MEDS: pantoprazole DR 40 mg Tablet PO (08:59)
--- NOTE | 2021-12-01 09:19 | P.CONIM_ITS ---
Providers/Reason For Consult Consulting Physician/Specialty*: Gene Griffin MD/Cardiology Reason for Consult*: Bradycardia/PVCs Requesting Physician: Dr Pollock Attending Physician: Salvador Pollock Primary Care Provider: Tulio Valente History of Present Illness History of Present Illness Morelia Rapp is a 61 year old female with no prior cardiac history was referred from ENT clinic to ER for low heart rate. Patient was found to be in bigeminal rhythm. Patient denies any recent passing out however does feel lightheaded and had presyncopal episodes. She also mentions that occasionally she gets chest pressure with exertion and also gets shortness of breath. Patient was started on Wellbutrin several months ago and since starting that she feels weak and dizzy. Her blood pressure is controlled. Telemetry overnight shows sinus rhythm with bigeminy. Echocardiogram shows normal LV systolic function. Review of Systems Const: Reports: fatigue; Denies: fever(s), chills or body aches Eyes: Denies: change in vision, eye discomfort or eye redness ENMT: Reports: nasal congestion and sinus pain; Denies: throat pain, oral sores or ear or mastoid pain Card: Reports: chest pain; Denies: edema, pre-syncope or dyspnea on exertion Resp: Denies: dyspnea, productive cough, change in phlegm color or hemoptysis GI: Denies: abdominal pain, nausea, vomiting, diarrhea, constipation, hematochezia or melena : Denies: flank pain, urinary frequency or hematuria Musc: Denies: back pain, joint swelling or joint redness Skin/Breast: Denies: rash or new lesions Neuro: Denies: headache(s), numbness in extremities, weakness in extremities, dizziness, confusion or seizure-like activity Endo: Denies: polyuria or polydipsia Oral/Lymph: Denies: easy bleeding or tender lymph nodes All/Imm: Denies: urticaria or tongue swelling Medications/Allergies Home Medications Medication Instructions Recorded Confirmed Last Taken Type gabapentin 300 mg capsule 300 mg PO TID 03/07/19 11/30/21 11/30/21 History oxycodone-acetaminophen 10 mg-325 1 tab PO TID PRN Pain 04/10/19 11/30/21 11/29/21 History mg tablet (Percocet) night splint #1 ea 09/16/21 11/30/21 Unknown Rx oxybutynin chloride 5 mg tablet 5 mg PO DAILY 09/16/21 11/30/21 Unknown History alprazolam 0.5 mg tablet (Xanax) 0.5 mg PO BID 10/09/21 11/30/21 11/30/21 History azelastine 137 mcg (0.1 %) nasal 2 spray intranasal BID PRN Allergy 10/09/21 11/30/21 Unknown History spray aerosol Symptoms triamcinolone acetonide 0.5 % 1 applic topical BID PRN Rash 10/09/21 11/30/21 Unknown History topical cream valacyclovir 500 mg tablet 500 mg PO DAILY 10/09/21 11/30/21 11/30/21 History (Valtrex) bupropion HCl 100 mg tablet 200 mg PO DAILY 11/03/21 11/30/21 11/30/21 History bisacodyl 5 mg tablet,delayed 5 mg PO DIRECTED 11/09/21 11/30/21 11/30/21 History release (Dulcolax (bisacodyl)) albuterol sulfate 90 mcg/actuation 2 puff inhalation QID PRN 11/30/21 11/30/21 Unknown History aerosol inhaler Shortness Of Breath Or Wheezing cetirizine 10 mg tablet 10 mg PO DAILY 11/30/21 11/30/21 11/30/21 History furosemide 20 mg tablet 20 mg PO DAILY PRN Edema 11/30/21 11/30/21 Unknown History omeprazole 40 mg capsule,delayed 40 mg PO DAILY 11/30/21 11/30/21 11/30/21 History release ondansetron 4 mg disintegrating 4 mg PO BID PRN Nausea And Vomiting 11/30/21 11/30/21 Unknown History tablet Allergies Allergy/AdvReac Type Severity Reaction Status Date / Time No Known Allergies Allergy Verified 11/30/21 15:26 Current Medications Generic Name Dose Route Start Last Admin Trade Name Freq PRN Reason Stop Dose Admin Acetaminophen 650 mg 11/30/21 21:27 12/01/21 08:58 Acetaminophen 325 Mg Tablet PO 650 mg Q6H PRN Administration Mild/Mod Pain Or Temp >/= 101 Alprazolam 0.5 mg 12/01/21 00:30 12/01/21 08:58 Alprazolam 0.5 Mg Tablet PO 0.5 mg BID CHRISTINE Administration Bisacodyl 5 mg 11/30/21 21:27 11/30/21 21:53 Bisacodyl 5 Mg Tablet PO 5 mg DIRECTED CHRISTINE Administration Bupropion HCl 100 mg 12/01/21 09:00 12/01/21 08:58 Bupropion Sr (12 Hr) 100 Mg Tablet PO 100 mg DAILY CHRISTINE Administration Cetirizine HCl 10 mg 12/01/21 09:00 12/01/21 08:58 Cetirizine 10 Mg Tablet PO 10 mg DAILY CHRISTINE Administration Gabapentin 300 mg 11/30/21 21:27 12/01/21 08:59 Gabapentin 300 Mg Capsule PO 300 mg TID CHRISTINE Administration Nicotine 1 patch 12/01/21 02:00 12/01/21 03:04 Nicotine 14 Mg Patch TRANSDERMA 1 patch DAILY CHRISTINE Administration Oxybutynin Chloride 5 mg 12/01/21 09:00 12/01/21 08:56 Oxybutynin 5 Mg Tablet PO Not Given DAILY CHRISTINE Pantoprazole Sodium 40 mg 12/01/21 09:00 12/01/21 08:[address] 40 Mg Tablet PO 40 mg DAILY CHRISTINE Administration Valacyclovir HCl 500 mg 12/01/21 09:00 12/01/21 08:58 Valacyclovir 1,000 Mg Tablet PO 500 mg DAILY CHRISTINE Administration PFSH Acute PFSH: Medical History Abdominal bloating Abdominal pain Anxiety and depression Benign liver cyst Coccygodynia Fibromyalgia Genital herpes Hematoma Open fracture of shaft of left tibia Osteoarthritis Status post fracture of tibia Surgical History History of 3 sections History of carpal tunnel repair History of knee surgery (~01/2019) S/P breast augmentation Family History Denies family history of Anesthesia complication Bleeding disorder Social History Smoking and tobacco status: current every day smoker cigarettes Packs smoked per day: 1 Quit status (tobacco): has tried quititng Second hand smoke exposure: Yes Smoking risk assessment/counseling performed?: No Alcohol intake: never Desire information about substance/drug rehabilitation?: No Adopted: No Caregiver/support person: Yes Lives independently: Yes Household members: spouse and significant other Housing: House Marital status: Highest education level completed: High School Graduate service: No Current occupational status: disabled Current occupational exposures/hazards: No Pets and animals: No History of recent travel: No Sexually active: Yes Current gender identity: Female Chela/Worship: Taoism Special chela needs: No Agree to transfusion: No Financial difficulty paying for basics: Not Very Hard Vitals/I&O/Wt Last Vital Signs Temp 98.8 F 12/01/21 08:00 Pulse 56 L 12/01/21 08:00 Resp 16 12/01/21 08:00 BP 129/85 12/01/21 08:00 Pulse Ox 98 12/01/21 08:00 O2 Del Method 12/01/21 08:00 11/30/21 12/01/21 12/01/21 22:59 06:59 14:59 Intake Total 240 / 240 360 / 600 Balance 240 / 240 360 / 600 Weight last 48 hrs Weight 154 lb 9 oz Weight 145 lb Physical Exam Narrative: GENERAL: Patient is alert, awake and oriented x3. [] NECK: No jugular vein distension. [] HEENT: No cyanosis. No icterus. No pallor. [] HEART: Regular S1 and S2. No murmur, rub or gallop. [] LUNGS: Clear to auscultate bilaterally. [] ABDOMEN: Soft, nontender and nondistended. Positive bowel sounds. No guarding, rebound or tenderness. [] CENTRAL NERVOUS SYSTEM: Grossly nonfocal. [] EXTREMITIES: Lower extremities with no edema bilaterally. Pulses palpable in the lower extremities, both dorsalis pedis and posterior tibial. [] Data : 12/01/21 04:22 12/02/21 04:01 A&P Assessment and plan (1) Bigeminal rhythm: (2) Chest pain: (3) Bradycardia: Plan Patient has been sent for bradycardia however is found to be in bigeminal r hythm. She feels lightheaded and dizzy. She also complains of occasional chest discomfort on exertion. We will recommend performing ischemic work-up with a Lexiscan. Will initiate amiodarone 200 mg twice daily to suppress the PVCs. Continue tele monitoring. Keep K >4, Mg > 2 At time of discharge,will need 30 day event monitor Thank you for involving us with care of this patient. We will continue to follow. Please call with questions. Consult Attestations Medical Necessity Statement: Care expected to cross 2 midnights. Coding Level of Care Code Acute Government Affairs Researcher for Maldonado Mantilla Diagnoses Bigeminal rhythm I49.8 Chest pain R07.9 Bradycardia R00.1
[2021-12-01 09:45] LABS: Blood Urea Nitrogen 16 mg/dL (8-23); Calcium 9.6 mg/dL (8.5-10.5); Carbon Dioxide 22 mmol/L (22-29); Chloride 106 mmol/L (98-107); Glomerular Filtration Rate 85.4 mL/min (90-130); Glucose 82 mg/dL (65-115); Osmolality Calculated 288 mOsm/kg (285-295); Sodium 139 mmol/L (136-145)
[2021-12-01 09:51] LABS: Anion Gap 15.3 (5-19); Potassium 4.3 mmol/L (3.5-5.1)
--- NOTE | 2021-12-01 10:47 | PC.CHAP ---
Pastoral Care Encounter/Spiritual Assessment Type of Contact [] Declined material control clerk visit [] Patient/Family/Request visit [] Outpatient visit [] Follow-up visit [] Physician referral [] Code/Alert [x] Routine visit [] Staff referral [] Actively dying [] Patient sleeping [] Family support [] [x] Out of room [] Palliative care [] [] Receiving care in room [] Pre-surgical visit [] Trauma [] Long length of stay [] ICU visit [] Other: Relational/Emotional Strength [] Patient feels connected with others/family/visitors/staff [] Distress [] Loneliness/isolation [] Abandonment Spirituality of Patient [] Person of Chela [] Attends Jehovah'S Witness of their Chela [] Believes in Prayer [] Reads Bible or Anabaptism materials [] There are Spiritual issues to be addressed Town Clerk Interventions [] Prayer [] Active listening [] Non-anxious presence [] Spiritual/emotional support [] Crisis/trauma care [] Spiritual counseling [] Bereavement support [] Provided bereavement packet [] Provided Bible/devotional materials [] Provided toy/stuffed animal, coloring book to patient or family member [] Provided Communion [] Anointing/[place] [] Salvation [] Completed spiritual assessment [] Other: Impact on Illness or Injury [] Angry [] Fearful [] Anxious [] Often cries [] Exhaustion [] Unable to work [] Unable to attend voodoo [] Unable to walk/stand [] Unable to read [] Unable to drive [] Unable to eat/drink [] Unable to sleep [] Unable to be with family [] Patient intubated [] Other: Summary Time spent with patient
--- NOTE | 2021-12-01 11:59 | PM.PN ---
Subjective Subjective: Again noted bigeminy this morning. She states is feeling a bit antsy, like the [place] are closing in on her and would like to go home. Discussed with her coming up medication changes, additional medication which may slow down her heart rate to help eliminate premature contractions, and that this would be best done while monitoring in the hospital given her otherwise low pulse rate. Discussed with her to let us know in case of any changes in symptoms. She would like to ambulate. Encouraged her to stay within the hospital floor so as we can continue cardiac monitoring. Discussed with her we will also add also nicotine lozenges in addition to patch as needed for cravings. Her echocardiogram has been obtained. My visit was before she was seen by cardiology. Denies other new developments. Does not have good appetite. 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 Vitals/I&O/Wt Last Vital Signs Temp 97.8 F 12/01/21 11:49 Pulse 40 L 12/01/21 11:49 Resp 16 12/01/21 11:49 BP 180/69 12/01/21 11:49 Pulse Ox 97 12/01/21 11:49 O2 Del Method 12/01/21 11:49 11/30/21 12/01/21 12/01/21 22:59 06:59 14:59 Intake Total 240 / 240 360 / 600 120 / 120 Balance 240 / 240 360 / 600 120 / 120 Weight last 48 hrs Weight 70.108 kg Weight 65.771 kg Physical Exam Narrative: at bedside Const: COMMON NORMALS: patient oriented x3 and alert GENERAL APPEARANCE: cooperative ORIENTATION/CONSCIOUSNESS: Yes awake HENMT: COMMON NORMALS: oropharynx normal Neck/C-Spine: COMMON NORMALS: no JVD Resp: COMMON NORMALS: normal respiratory effort and clear to auscultation bilaterally AUSCULTATION: clear to auscultation bilaterally Cardio: COMMON NORMALS: no JVD, S1 normal heart sound present, S2 normal heart sound present and No murmurs present (Cardio) RHYTHM: abnormal rhythm regularly irregular HEART SOUNDS: S1 normal heart sound present and S2 normal heart sound present GI: COMMON NORMALS: Normal to inspection, nondistended, normoactive bowel sounds present, Soft to palpation and non-tender PALPATION: Yes Soft to palpation Extremity: COMMON NORMALS: no joint enlargement and no pedal edema Neuro: COMMON NORMALS: patient oriented x3 and moves all extremities SENSORIUM/ORIENTATION: Yes alert Skin: COMMON NORMALS: no rashes or lesions noted GENERAL SKIN EXAM: no rashes or lesions noted Data : 12/01/21 04:22 12/01/21 09:13 A&P Assessment and plan (1) Slow pulse: Unchanged this morning. This morning we have decreased as discussed Wellbutrin dose down to 100 mg. Appreciate also recommendation cardiology. Start amiodarone. Continue telemetry monitoring. They have discussed also additional assessment with stress testing which is requested for the morning. Potassium is okay, TSH is normal. TTE was done earlier, now is read as well and unremarkable. (2) Bigeminal rhythm: Plan Sinusitis: Acute versus chronic sinusitis. Will need to revisit ENT for follow-up. For now continue antihistamine as needed, saline spray as needed, Tylenol as needed, for now hold off antibiotic. Smoking addiction: Encourage smoking cessation. Nicotine replacement. Add lozenges as needed. Attestations Medical Necessity Statement*: Continue hospitalization for assessment management of bigeminy, effective low pulse rate, additional assessment for possible undiagnosed coronary artery disease being possible etiology. Initiation of antiarrhythmic. Coding Level of Care Code Acute Food Or Baggage Handling Rampman for Maldonado Mantilla Diagnoses Slow pulse R00.1 Bigeminal rhythm I49.8
[2021-12-01] MEDS: amiodarone 200 mg Tablet PO (12:17)
[2021-12-01] MEDS: nicotine 4 mg lozenge MUCOUS MEM (16:51)
[2021-12-02] MEDS: amiodarone 200 mg Tablet PO ×2 (00:40→11:29)
[2021-12-02 00:42] VITALS: BP 102/59; PULSE 74; RESP 14; O2SAT 97
[2021-12-02 03:13] VITALS: BP 116/79; PULSE 66; RESP 17; TEMP 36.3; O2SAT 96
[2021-12-02 05:37] VITALS: PULSE 62
[2021-12-02 05:37] LABS: Blood Urea Nitrogen 17 mg/dL (8-23); Calcium 9.1 mg/dL (8.5-10.5); Carbon Dioxide 22 mmol/L (22-29); Chloride 107 mmol/L (98-107); Glomerular Filtration Rate 85.4 mL/min (90-130); Glucose 108 mg/dL (65-115); Osmolality Calculated 294 mOsm/kg (285-295); Sodium 141 mmol/L (136-145)
[2021-12-02 07:44] VITALS: BP 138/73; PULSE 65
[2021-12-02] MEDS: ondansetron 2 mg/ML SDV 2 mL 4 MG IVP (07:47)
[2021-12-02] MEDS: regadenoson 0.4 Mg/5 ml Syringe IVP (07:47)
--- NOTE | 2021-12-02 08:00 | ECG_ITS ---
[facility] Test Date: 2021-12-02 Pat Name: Morelia Rapp Department: Room: 253 Gender: Female Higher Level Teaching Assistant: : 1960 Requested By: Salvador Pollock Order Number: [id number] Migue MD: Mark Solis M.D. Interpretive Statements NAME OF STUDY: LEXISCAN SESTAMIBI STRESS TEST INDICATION: Bigeminy,chest discomfort, PROCEDURE: At the baseline, the EKG revealed sinus rhythm with a frequent PVCs in the form of trigeminy. The baseline heart was 92 bpm with a blood pressue of 130/88 mm of Hg Lexiscan was infused over a period of 20 seconds. A total of 0.4 milligrams of Lexiscan was infused. The stress phase was continued for a total of 5 minutes. Heart rate at the end of the stress phase was 75 bpm with a blood pressure 85/57 mm of Hg. The EKG at the peak infusion revealed- almost no PVCs Sestamibi was injected 20 seconds after the Lexiscan infusion. Heart rate at the end of the recovery phase was 63 bpm with a blood pressure of 138/73 mm of Hg. CONCLUSION: 1. No significant EKG changes with the LexiScan infusion 2. No LexiScan induced chest pain. The PVCs almost disappeared with the peak infusion 3. Normal blood pressure and heart rate response 4. Sestamibi/sestamibi perfusion scan pending; see separate report. Electronically Signed On 12-04-2021 16:18:37 CDT by Mark Solis M.D. [id number]
--- NOTE | 2021-12-02 08:37 | P.PN_ITS ---
Subjective Subjective: Patient is overall stable. Stress test does not show any significant ischemia. PVC burden has decreased after initiation of amiodarone. Vitals/I&O/Wt Last Vital Signs Temp 97.4 F L 12/02/21 03:13 Pulse 65 12/02/21 07:44 Resp 17 12/02/21 03:13 BP 138/73 12/02/21 07:44 Pulse Ox 96 12/02/21 03:13 O2 Del Method 12/02/21 03:13 12/01/21 12/02/21 12/02/21 22:59 06:59 14:59 Intake Total 0 / 120 Balance 0 / 120 Weight last 48 hrs Weight 154 lb 9 oz Weight 145 lb Physical Exam Narrative: GENERAL: Patient is alert, awake and oriented x3. [] NECK: No jugular vein distension. [] HEENT: No cyanosis. No icterus. No pallor. [] HEART: Regular S1 and S2. No murmur, rub or gallop. [] LUNGS: Clear to auscultate bilaterally. [] ABDOMEN: Soft, nontender and nondistended. Positive bowel sounds. No guarding, rebound or tenderness. [] CENTRAL NERVOUS SYSTEM: Grossly nonfocal. [] EXTREMITIES: Lower extremities with no edema bilaterally. Pulses palpable in the lower extremities, both dorsalis pedis and posterior tibial. [] Data : 12/01/21 04:22 12/02/21 04:01 A&P Assessment and plan (1) Bigeminal rhythm: (2) Chest pain: (3) Bradycardia: Plan Patient's PVC burden has decreased since starting amiodarone. Continue 200 mg twice daily. LV systolic function was normal on echocardiogram. Lexiscan does not reveal any significant ischemia. Patient is stable will be discharged from cardiology standpoint. We will recommend 30-day event monitor to assess PVC burden and rule out any arrhythmias/pauses Thank you for involving us with care of this patient. Please call with questions. Attestations Medical Necessity Statement*: Care expected to cross 2 midnights. Coding Level of Care Code Acute Building Maintenance Mechanic for Maldonado Mantilla Diagnoses Bigeminal rhythm I49.8 Chest pain R07.9 Bradycardia R00.1
[2021-12-02] MEDS: valACYclovir 1,000 mg Tablet 500 MG PO (08:53)
[2021-12-02] MEDS: ALPRAZolam 0.5 mg Tablet PO (08:53)
[2021-12-02] MEDS: cetirizine 10 mg Tablet PO (08:55)
[2021-12-02] MEDS: buPROPion SR (12 HR) 100 mg Tablet PO (08:55)
[2021-12-02] MEDS: oxybutynin 5 mg Tablet PO (08:55)
[2021-12-02] MEDS: gabapentin 300 mg Capsule PO (08:55)
[2021-12-02] MEDS: pantoprazole DR 40 mg Tablet PO (08:55)
--- NOTE | 2021-12-02 08:56 | PC.CHAP ---
Pastoral Care Encounter/Spiritual Assessment Type of Contact [] Declined clean rice grader and reel tender visit [] Patient/Family/Request visit [] Outpatient visit [] Follow-up visit [] Physician referral [] Code/Alert [x] Routine visit [] Staff referral [] Actively dying [] Patient sleeping [] Family support [] [x] Out of room [] Palliative care [] [] Receiving care in room [] Pre-surgical visit [] Trauma [] Long length of stay [] ICU visit [] Other: Relational/Emotional Strength [] Patient feels connected with others/family/visitors/staff [] Distress [] Loneliness/isolation [] Abandonment Spirituality of Patient [x] Person of Chela [] Attends [employer] of their [place] [x] Believes in Prayer [] Reads Bible or Temple materials [] There are Spiritual issues to be addressed Artificial Teeth Inspector Interventions [x] Prayer [x] Active listening [x] Non-anxious presence [x] Spiritual/emotional support [] Crisis/trauma care [] Spiritual counseling [] Bereavement support [] Provided bereavement packet [] Provided Bible/devotional materials [] Provided toy/stuffed animal, coloring book to patient or family member [] Provided Communion [] Anointing/[place] [] Salvation [x] Completed spiritual assessment [] Other: Impact on Illness or Injury [] Angry [] Fearful [] Anxious [] Often cries [] Exhaustion [] Unable to work [] Unable to attend caodaism [] Unable to walk/stand [] Unable to read [] Unable to drive [] Unable to eat/drink [] Unable to sleep [] Unable to be with family [] Patient intubated [] Other: Summary Pt was out of room for a stress test but was waiting in room so clean rice grader and reel tender met with spouse. They have been here a couple of days and he has been staying with her other than a few times to run home. Hoping the test result will lead the doctor to what medication changes needs to be done and they can go home. They are persons of chela. Time spent with patient 10m
--- NOTE | 2021-12-02 11:22 | NMCV_ITS ---
NM tyrell perf SPECT r/s* [id number] Morelia Rapp Age: 61 Gender: F : 1960 Exam Date: 12/02/2021 06:56 Ordering Phys: Salvador Pollock MD Technologist: NOLA Gomez Exam Location: [facility] Indications: CHEST PAIN STRESS TEST Please see separate stress test report in [facility] for full findings IMAGE PROTOCOL Rest/Stress 1 Lexiscan Day Radiopharmaceutical Dose (mCi) Administration Site Administered by Rest: Tc-99m 10.8 IV NOLA Zhou Sestamibi Stress:Tc-99m 32.6 IV NOLA Zhou Sestamibi Rest: 02-Dec-2021 60 Discovery 630 Stress: 02-Dec-2021 30 Discovery 630 0.4mg Lexiscan. Images obtained in supine and prone position. SPECT RESULTS Technical Quality: Excellent Raw Data Analysis: Normal Image Corrections: No attenuation or motion correction applied Summed Stress Score: 0 Summed Rest Score: 3 Summed Difference Score: 0 PERFUSION FINDINGS Slightly decreased tracer uptake in the mid and apical anterior wall region with no significant reversibility. FUNCTIONAL RESULTS (calculated via Gated SPECT) Stress Image LV EF (%): 59 Stress EDV (mL):78 TID: 1.02 Stress ESV (mL):32 FUNCTIONAL FINDINGS: Segmental wall motion analysis revealing no gross wall motion normalities IMPRESSIONS 1. Myocardial perfusion imaging revealing small area of persistent decreased tracer uptake in the anterior wall region, suggesting myocardial scarring versus attenuation artifact 2. Normal LV ejection fraction 59%. 3. LV wall motion analysis revealing no gross wall motion abnormalities. 4. Normal LV volume Low probability for coronary ischemia, based on the above findings No similar previous studies are available for comparison Dr Mark Solis MD [facility] (Electronically Signed) Final Date: 02 December 2021 12:34 S
[2021-12-02 11:24] VITALS: BP 149/67; PULSE 68; RESP 14; TEMP 36.7; O2SAT 98
--- NOTE | 2021-12-02 11:33 | PC.NURSE ---
Medication: Amiodarone 200 mg PO, Scanner issue with multiple attempts to scan pt and medication. 1 tablet of Amiodarone 200 mg PO given to pt.
--- NOTE | 2021-12-02 14:05 | P.DS_ITS ---
Discharge Providers Date of Admission: 11/30/21 20:31 Date of Discharge: December 02, 2021 Attending Provider at Admission: Salvador Pollock Attending Provider at Discharge: Salvador Pollock Primary Care Provider: Tulio Valente Diagnoses at Discharge Discharge Diagnosis (1) Bigeminal rhythm: Status: Acute (2) Chest pain: Status: Acute (3) Bradycardia: Status: Acute Reason for Visit Reason for Visit: Sent from ENT dizzy/sob/chest pressure Hospital Course Hospital Course Pleasant 61-year-old lady with history of smoking, stress due to also her daughter 11 months ago, subsequently started on Wellbutrin, with episodes of dizziness after initial dose of Wellbutrin 400 mg, which she had decreased herself to 200 mg due to symptoms, however, with protracted recently someone or symptoms of exertional intolerance, occasionally also finding herself falling down, not always remembering how it happens. She was referred to ENT office for assessment of sinusitis, however, with vital signs taken was found to have slow pulse rate, in ER assessed to have bigeminy with compensatory pauses after PVCs, with low effective pulse rate 36-40 bpm. Due to possibility of causing tachyarrhythmia Wellbutrin dose is decreased to 100 mg twice daily, and she intends to discontinue this medication with follow-up with primary provider for reassessment and consideration whether a different antidepressant is needed. This may further help alleviate PVC burden resolving issues with low pulse rate. She was monitored in the hospital, with noted persistent bigeminy episodes, was also assessed by cardiology, and for now also initiated on amiodarone to help cut down PVCs. She has reported intermittently having symptoms of left-sided chest discomfort, sometimes rating to left arm which she had also attributed to stress. Due to coronary disease risk with smoking, intermittent hypertension, with cardiac dysrhythmia was additionally assessed by stress testing. She noted some discomfort during stress test, possibly secondary to Lexiscan, with a cardiac perfusion scan revealing small area of persistent decreased tracer uptake in anterior wall region, suggestive of myocardial scarring versus attenuation artifact. Normal ejection fraction. No gross wall motion abnormalities. Microvascular disease may also still be considered, and as such she is initiated now on aspirin. Please continue to reevaluate risk factors of coronary disease and revisit smoking cessation. She is asked to follow-up with cardiology for reassessment. She is set up with cardiac event monitor at discharge. Please follow-up eyes, thyroid, lungs, liver while on amiodarone. Physical Exam Narrative: at bedside. Const: COMMON NORMALS: patient oriented x3 and alert GENERAL APPEARANCE: cooperative ORIENTATION/CONSCIOUSNESS: Yes awake HENMT: COMMON NORMALS: oropharynx normal Neck/C-Spine: COMMON NORMALS: no JVD Resp: COMMON NORMALS: normal respiratory effort and clear to auscultation bilaterally AUSCULTATION: clear to auscultation bilaterally Cardio: COMMON NORMALS: no JVD, regular rhythm, S1 normal heart sound present, S2 normal heart sound present and No murmurs present (Cardio) RHYTHM: regular rhythm HEART SOUNDS: S1 normal heart sound present and S2 normal heart sound present GI: COMMON NORMALS: Normal to inspection, nondistended, normoactive bowel sounds present, Soft to palpation and non-tender PALPATION: Yes Soft to palpation Extremity: COMMON NORMALS: no joint enlargement and no pedal edema Neuro: COMMON NORMALS: patient oriented x3 and moves all extremities SENSORIUM/ORIENTATION: Yes alert Skin: COMMON NORMALS: no rashes or lesions noted GENERAL SKIN EXAM: no rashes or lesions noted Discharge Data Studies Completed and Pending Completed Studies During Hospitalization Category Date Time Status Cardiac Stress Test MIBI [Sestamibi Stress Test Request Exams 12/02/21 08:00 Draft ] Routine XR chest 1V portable [id number] Stat Exams 11/30/21 14:45 Completed NM tyrell perf SPECT r/s* [id number] Routine Nuc Med 12/02/21 11:22 Completed CV. echo complete* [id number] Stat Ultrasound 11/30/21 18:23 Completed Radiology Impressions Chest X-Ray 11/30/21 14:45 IMPRESSION: 1. No acute cardiopulmonary process. 2. Incidental/nonacute findings are listed in the report. Laboratory Results WBC 7.8 10^3/uL (4.0-10.0) 12/01/21 04:22 RBC 5.00 10^6/uL (4.1-5.3) 12/01/21 04:22 Hgb 15.6 g/dL (11.5-15.3) H 12/01/21 04:22 Hct 47.9 % (37.0-47.0) H 12/01/21 04:22 MCV 95.8 fl (81-99) 12/01/21 04:22 MCH 31.2 pg (28.0-34.0) 12/01/21 04: MCHC 32.6 g/dL (30.0-36.0) 12/01/21 04:22 RDW 13.3 % (12.1-15.1) 12/01/21 04:22 Plt Count 224 10^3/cmm (130-400) 12/01/21 04:22 MPV 11.3 fL (7.4-10.4) H 12/01/21 04:22 Neut % (Auto) 48.1 % 12/01/21 04:22 Lymph % (Auto) 40.1 % 12/01/21 04:22 Dickinson % (Auto) 8.4 % 12/01/21 04:22 Eos % (Auto) 2.3 % 12/01/21 04:22 Baso % (Auto) 0.8 % 12/01/21 04: Neut # (Auto) 3.73 10^3/uL (1.8-7.7) 12/01/21 04:22 Lymph # (Auto) 3.1 10^3/uL (0.8-4.8) 12/01/21 04:22 Dickinson # (Auto) 0.7 10^3/uL (0.2-0.9) 12/01/21 04:22 Eos # (Auto) 0.2 10^3/uL (0.0-0.8) 12/01/21 04:22 Baso # (Auto) 0.1 10^3/uL (0.0-0.1) 12/01/21 04:22 Nucleated RBC % (auto) 0 % 12/01/21 04:22 Nucleated RBCs # 0.0 /100WBC 12/01/21 04:22 Sodium 141 mmol/L (136-145) 12/02/21 04:01 Potassium 4.0 mmol/L (3.5-5.1) 12/02/21 04:01 Chloride 107 mmol/L (98-107) 12/02/21 04:01 Carbon Dioxide 22 mmol/L (22-29) 12/02/21 04:01 Anion Gap 16.0 (5-19) 12/02/21 04:01 BUN 17 mg/dL (8-23) 12/02/21 04:01 Creatinine 0.7 mg/dL (0.5-0.9) 12/02/21 04:01 GFR Calculation 85.4 mL/min (90-130) L 12/02/21 04:01 Glucose 108 mg/dL (65-115) 12/02/21 04:01 Calculated Osmolality 294 mOsm/kg (285-295) 12/02/21 04:01 Calcium 9.1 mg/dL (8.5-10.5) 12/02/21 04:01 Total Bilirubin 0.3 mg/dL (0.15-1.2) 11/30/21 14:55 AST 16 U/L (0-32) 11/30/21 14:55 ALT 14 U/L (0-33) 11/30/21 14:55 Alkaline Phosphatase 84 U/L (35-105) 11/30/21 14:55 Troponin T Baseline 7 ng/L (0-10) 11/30/21 14:55 Troponin T 120 Minute 6.21 ng/L (0-10) 11/30/21 16:40 Delta Troponin T -0.79 ABS# (0-10) L 11/30/21 16:40 Troponin T Hi Sens 6Hr 6.21 ng/L (0-10) 11/30/21 20:36 Troponin T Hi Sens 6Hr Delta -0.79 ng/L (0-12) L 11/30/21 20:36 Total Protein 8.1 g/dL (6.6-8.7) 11/30/21 14:55 Albumin 4.2 g/dL (3.5-5.2) 11/30/21 14:55 Globulin 3.9 g/dL (1.3-4.6) 11/30/21 14:55 TSH 3.20 uIU/mL (0.27-4.20) 11/30/21 14:50 Free T4 1.02 ng/dL (0.82-1.77) 11/30/21 14:50 Urine Color Straw (Yellow) 11/30/21 15:36 Urine Appearance Clear (CLEAR) 11/30/21 15:36 Urine pH 6.5 (5-7) 11/30/21 15:36 Ur Specific [place] 1.005 (1.005-1.030) 11/30/21 15:36 Urine Protein Neg (Negative) 11/30/21 15:36 Urine Glucose (UA) Norm (Normal) 11/30/21 15:36 Urine Ketones Negative (Negative) 11/30/21 15:36 Urine Blood Neg (Negative) 11/30/21 15:36 Urine Nitrate Negative (Negative) 11/30/21 15:36 Urine Bilirubin Neg (Negative) 11/30/21 15:36 Urine Urobilinogen Norm mg/dL (Negative) 11/30/21 15:36 Ur Leukocyte Esterase Negative (Negative) 11/30/21 15:36 Vitals Last Vital Signs Temp 98.0 F 12/02/21 11:24 Pulse 68 12/02/21 11:24 Resp 14 12/02/21 11:24 BP 149/67 12/02/21 11:24 Pulse Ox 98 12/02/21 11:24 O2 Del Method 12/02/21 11:24 Discharge Plan Discharge Patient Disposition: Home Condition: Stable Prescriptions: New nicotine 14 mg/24 hr Patch 24 Hour 1 patch transdermal Q24H Qty: 90 0RF Pacerone 200 mg Tablet 200 mg PO Q12H Qty: 180 0RF nicotine (polacrilex) 4 mg Lozenge 4 mg mucous membrane Q2H PRN (Reason: Nicotine Cravings) Qty: 90 3RF Adult Aspirin Regimen 81 mg tablet,delayed release (DR/EC) 81 mg PO DAILY Qty: 90 0RF Continued gabapentin 300 mg capsule 300 mg PO TID alprazolam [Xanax] 0.5 mg tablet 0.5 mg PO BID oxycodone-acetaminophen [Percocet] 10-325 mg tablet 1 tab PO TID PRN (Reason: Pain) oxybutynin chloride 5 mg tablet 5 mg PO DAILY azelastine 137 mcg (0.1 %) aerosol,spray 2 spray intranasal BID PRN (Reason: Allergy Symptoms) Rx Instructions: administer into each nostril triamcinolone acetonide 0.5 % cream 1 applic topical BID PRN (Reason: Rash) valacyclovir [Valtrex] 500 mg tablet 500 mg PO DAILY bisacodyl [Dulcolax (bisacodyl)] 5 mg tablet,delayed release (DR/EC) 5 mg PO DIRECTED Rx Instructions: 6x a day furosemide 20 mg tablet 20 mg PO DAILY PRN (Reason: Edema) albuterol sulfate 90 mcg/actuation Hfa Aerosol Inhaler 2 puff INHALATION QID PRN (Reason: Shortness Of Breath Or Wheezing) ondansetron 4 mg tablet,disintegrating 4 mg PO BID PRN (Reason: Nausea And Vomiting) cetirizine 10 mg Tablet 10 mg PO DAILY omeprazole 40 mg Capsule,Delayed Release(Dr/Ec) 40 mg PO DAILY Changed bupropion HCl 100 mg tablet 100 mg PO DAILY Qty: 1 0RF No Action (DME) night splint See Rx Instructions .Route .MEDSUPPLY Qty: 1 0RF Rx Instructions: As directed Discharge Orders: Discharge Order (Routine); Ordered 12/02/21 Ordered By: Salvador Pollock Other Ambulatory Orders: MCT/Event Monitor 21 Days (Routine) Timeframe: 1 Day Facility: [facility] - Location: Radiology Ordered By: Salvador Pollock Referrals: Tulio Valente [Primary Care Provider] - 12/07/21 2:20 pm (APPOINTMENT WITH MARIS MUNOZ) Camille Ryan FNP [Nurse Practitioner] - 12/09/21 10:30 am Discharge Diet: Cardiac Discharge Activity: Increase activity as tolerated Patient Instructions: Nicotine (Into the mouth), Aspirin (By mouth), Amiodarone (By mouth), Nicotine (Absorbed through the skin), How to Stop Smoking (GEN), Opioid Safety Activity Restrictions/Additional Instructions: Please monitor pulse rate at home twice daily, write down values to bring to your appointment at follow-up. Please decrease bupropion dose to 100 mg daily, discontinuing medication in 4-5 days, discussed with your primary doctor arranging follow-up, consideration whether switching to a different medication will be necessary. Please follow-up with your primary doctor and cardiology with regards to usual reassessment on amiodarone therapy including eyes, thyroid, lungs, liver. Consider with cardiology when this medication can be discontinued. Small area of persistent decreased tracer uptake was seen in anterior wall which may be due to a past event with scarring, versus attenuation artifact. Continue to work with your primary provider to reduce risk factors of coronary disease. With possible microvascular disease, you are at this time also initiated on low- dose aspirin. Continue to attempt to quit smoking. Resume follow-up with ENT with regards to sinusitis. Discussed with your primary doctor consideration of referral for pulmonary function testing to assess your lung function. Discharge Attestations Time Spent in Discharge Care*: greater than 30 min Quality Metrics Clinical Quality Measures [ No reported AMI, CVA or VTE this stay] Coding Level of Care Code Acute Chg FW DC note Diagnoses Bigeminal rhythm I49.8 Chest pain R07.9 Bradycardia R00.1
== END 2021-12-02 14:33 | disposition home or self-care (01) ==
LOC: ER 17:12 → MEDSURG 12-01 06:38
PROVIDERS: Admitting Provider Internal Medicine; Emergency Provider Family Medicine; PCP Family Medicine; Visit Provider Internal Medicine
DX: I49.8 Other specified cardiac arrhythmias (principal); F17.210 Nicotine dependence, cigarettes, uncomplicated; R07.89 Other chest pain; M19.90 Unspecified osteoarthritis, unspecified site; R00.1 Bradycardia, unspecified; R07.9 Chest pain, unspecified; M54.2 Cervicalgia; J32.9 Chronic sinusitis, unspecified
CPT/HCPCS: 36415; 71045; 78452; 80048; 80053; 81003; 84439; 84443; 84484; 85025; 93005; 93017; 93306; 96374; 99203; 99285; A9500; G0378; J2405; J2785

== ENCOUNTER 2021-12-13 11:27 | Emergency (ER) | payer MEDICAID, SELFPAY ==
[2021-12-13] VITALS (9 sets, daily range): BP systolic 121–150; BP diastolic 56–86; PULSE 42–106; RESP 12–18; TEMP 36.6; O2SAT 96–100
--- NOTE | 2021-12-13 11:32 | ECG_ITS ---
[facility] Test Date: 2021-12-13 Pat Name: Morelia Rapp Department: Room: Gender: Female Phone Screener: : 1960 Requested By: Inna Mclaughlin Order Number: [id number] Migue MD: Makayla Reynolds M.D. Measurements Intervals Tangent Rate: 74 P: 66 KS: 152 QRS: 62 QRSD: 82 T: 65 QT: 409 QTc: 456 Interpretive Statements SINUS RHYTHM WITH FREQUENT ECTOPIC PREMATURE COMPLEXES IN A BIGEMINAL PATTERN ABNORMAL RHYTHM ECG Compared to ECG 11/30/2021 16:49:05 Ventricular premature complex(es) no longer present Electronically Signed On 12-13-2021 22:00:02 CDT by Makayla Reynolds M.D. [id number]
--- NOTE | 2021-12-13 11:39 | XRR_ITS ---
PROCEDURE INFORMATION: Exam: XR Chest Exam date and time: 12/13/2021 11:57 AM Age: 61 years old Clinical indication: Pain; Chest pressure; Additional info: Chest pain TECHNIQUE: Imaging protocol: Radiologic exam of the chest. Views: 1 view. COMPARISON: CR XR chest 1V portable [id number] 11/30/2021 3:04 PM FINDINGS: Lungs: Unremarkable. No consolidation. Pleural spaces: Unremarkable. No pleural effusion. No pneumothorax. Heart/Mediastinum: Unremarkable. No cardiomegaly. Bones/joints: Unremarkable. XR/XR chest 1V portable [id number] IMPRESSION: No acute findings.
[2021-12-13 12:06] LABS: Basophils # 0.1 10^3/uL (0.0-0.1); Basophils % 0.7 %; Eosinophils # 0.1 10^3/uL (0.0-0.8); Hematocrit 47.1 % (37.0-47.0); Hemoglobin 15.2 g/dL (11.5-15.3); Lymphocytes # 2.7 10^3/uL (0.8-4.8); Mean Corpuscular HGB Conc 32.3 g/dL (30.0-36.0); Mean Corpuscular Hemoglobin 31.2 pg (28.0-34.0); Mean Corpuscular Volume 96.7 fl (81-99); Mean Platelet Volume 10.5 fL (7.4-10.4); Monocytes # 0.5 10^3/uL (0.2-0.9); Monocytes % 6.9 %; Neutrophils # 3.71 10^3/uL (1.8-7.7); Nucleated Red Blood Cells % 0 %; Platelet Count 236 10^3/cmm (130-400); Red Blood Count 4.87 10^6/uL (4.1-5.3); Red Cell Distribution Width 13.2 % (12.1-15.1)
--- NOTE | 2021-12-13 12:12 | PC.NURSE ---
pt comes into ED, reports her HR at home was 28. pt hr noted to be irregular. hydraulic blocker reading 60s-80s. pulse ox monitor reading heart rate 30s-40s. Physician aware and at bedside.
--- NOTE | 2021-12-13 12:17 | ED_ITS ---
HPI - Chest Pain General: Chief Complaint: Chest Pain Stated Complaint: MADDY SOB Time Seen by Provider: 12/13/21 11:36 History of Present Illness: This patient is a 61-year-old female presenting to the ER by private vehicle. She is here with intermittent chest pain, shortness of breath, fatigue. The symptoms have been ongoing for several months. She saw her ear nose and throat doctor recently and when they checked her heart rate in the office it was found to be in the 30s. She was sent to the ER and admitted at that time. She was evaluated by cardiology and had a stress test. She had been recently started on Wellbutrin and they thought perhaps that was the cause. She has stopped that for over a week. She was started on amiodarone that she does not feel like it made any difference at all in her symptoms. She noted her heart rate was 28 today after she had been up and active for several hours. She describes severe fatigue and lightheadedness. She is not having chest pain currently. She is in bigeminy on the monitor. No prior history of any cardiac disease. Her father did have problems with his heart rhythm and rate and required a pacemaker. She has not noticed anything that makes the chest pain better or worse. The low heart rate is also not made better or worse by any thing. Associated symptoms: Reports dyspnea; Deny abdominal pain, fever(s), nausea or vomiting Risk Factors: Coronary artery disease risk factors: smoking history Review of Systems Const: Denies: fever(s), chills or malaise Eyes: Denies: change in vision ENMT: Denies: odynophagia Card: Reports: chest pain, irregular heart rhythm, lightheadedness, pre- syncope and dyspnea on exertion; Denies: swelling of feet/ankles Resp: Reports: dyspnea; Denies: productive cough or non-productive cough GI: Denies: abdominal pain, nausea or vomiting : Denies: flank pain or difficulty voiding Musc: Denies: neck pain or back pain Skin/Breast: Denies: rash Neuro: Denies: headache(s), numbness in extremities or weakness in extremities Endo: Reports: tired all the time Oral/Lymph: Denies: easy bruising or easy bleeding [facility] PFSH: Medical History Abdominal bloating Abdominal pain Anxiety and depression Benign liver cyst Coccygodynia Fibromyalgia Genital herpes Hematoma Open fracture of shaft of left tibia Osteoarthritis Status post fracture of tibia Surgical History History of 3 sections History of carpal tunnel repair History of knee surgery (~01/2019) S/P breast augmentation Family History Denies family history of Anesthesia complication Bleeding disorder Social History Smoking and tobacco status: current every day smoker cigarettes Packs smoked per day: 1 Quit status (tobacco): has tried quititng Second hand smoke exposure: Yes Smoking risk assessment/counseling performed?: No Alcohol intake: never Desire information about substance/drug rehabilitation?: No Adopted: No Caregiver/support person: Yes Lives independently: Yes Household members: spouse and significant other Housing: House Marital status: Highest education level completed: High School Graduate service: No Current occupational status: disabled Current occupational exposures/hazards: No Pets and animals: No History of recent travel: No Sexually active: Yes Current gender identity: Female Chela/Evangelical: Anglican Special chela needs: No Agree to transfusion: No Financial difficulty paying for basics: Not Very Hard Physical Exam Const: COMMON NORMALS: no acute distress, patient oriented x3, no limitations and alert GENERAL APPEARANCE: cooperative and comfortable HENMT: HEAD & SCALP: normal to inspection FACE & SINUS: normal facial exam Eye: GENERAL EYE: appearance normal, both eyes and all related structures Neck/C-Spine: COMMON NORMALS: supple, no meningeal signs and no JVD Chest: COMMONS NORMALS: normal inspection of the chest Resp: COMMON NORMALS: normal respiratory effort, No use of accessory muscles and clear to auscultation bilaterally AUSCULTATION: clear to auscultation bilaterally Cardio: COMMON NORMALS: no JVD, regular rate and No murmurs present (Cardio) RATE: regular rate RHYTHM: abnormal rhythm (bradycardia - bigeminy on the monitor) GI: COMMON NORMALS: Normal to inspection, nondistended, normoactive bowel s ounds present, Soft to palpation and non-tender INSPECTION: Yes normal to inspection AUSCULTATION: Yes normoactive bowel sounds PALPATION: Yes Soft to palpation Back/Pelvis: COMMON NORMALS: thoracic and lumbar spine normal to inspection Extremity: COMMON NORMALS: normal to inspection Neuro: COMMON NORMALS: patient oriented x3, moves all extremities, no focal motor deficits and no sensory deficits noted SENSORIUM/ORIENTATION: Yes alert MENINGEAL SIGNS: Yes no meningeal signs Psych: COMMON NORMALS: mental status grossly normal, cooperative and normal affect Skin: COMMON NORMALS: no rashes or lesions noted and turgor normal GENERAL SKIN EXAM: no rashes or lesions noted and turgor normal Course Vital Signs: Vital signs: Vital Signs Temperature 97.9 F 12/13/21 11:32 Pulse Rate 106 H 12/13/21 15:00 Respiratory Rate 17 12/13/21 15:00 Blood Pressure 150/76 12/13/21 15:00 Pulse Oximetry 100 12/13/21 15:00 Oxygen Delivery Me thod 12/13/21 11:32 MDM - Chest Pain Medical Decision Making Bradycardia, bigeminy, electrolyte disorder, ischemia, structural heart defect Reviewed recent admission. She had a cardiology consult, stress test. She wore a monitor through the [employer] system and expects those results to be available on Tuesday through her PCP. The patient's work-up here is unremarkable with the exception of her EKG which shows bigeminy. On the monitor she went back and forth between a sinus rhythm in the 70s and bigeminy with an effective pulse in the 40s. She does feel more short of breath with the episodes of bigeminy. Blood pressure has been fine. She was put on amiodarone on her last hospitalization. She has a follow-up appointment with cardiology tomorrow. She initially had intended to cancel it thinking that it was only for the event monitor placement. She got that through her PCP and obviously does not feel that she needs a second 1. I spoke to Dr. Jamison who does want her to be seen in the office. She does not feel like she needs to be admitted. She may need a referral to electrophysiology for ablation of her PVCs. I explained this in detail to the patient and her . We also discussed in detail reasons to return to the hospital and the relative significance of the actual numbers of heart rate versus how she feels. Lab Data : 12/13/21 11:56 12/13/21 11:56 Radiology Impressions Chest X-Ray 12/13/21 11:39 IMPRESSION: No acute findings. Laboratory Results WBC 7.0 10^3/uL (4.0-10.0) 12/13/21 11:56 RBC 4.87 10^6/uL (4.1-5.3) 12/13/21 11:56 Hgb 15.2 g/dL (11.5-15.3) 12/13/21 11:56 Hct 47.1 % (37.0-47.0) H 12/13/21 11:56 MCV 96.7 fl (81-99) 12/13/21 11:56 MCH 31.2 pg (28.0-34.0) 12/13/21 11:56 MCHC 32.3 g/dL (30.0-36.0) 12/13/21 11:56 RDW 13.2 % (12.1-15.1) 12/13/21 11:56 Plt Count 236 10^3/cmm (130-400) 12/13/21 11:56 MPV 10.5 fL (7.4-10.4) H 12/13/21 11:56 Neut % (Auto) 53.0 % 12/13/21 11:56 Lymph % (Auto) 38.0 % 12/13/21 11:56 [place] % (Auto) 6.9 % 12/13/21 11:56 Eos % (Auto) 1.0 % 12/13/21 11:56 Baso % (Auto) 0.7 % 12/13/21 11:56 Neut # (Auto) 3.71 10^3/uL (1.8-7.7) 12/13/21 11:56 Lymph # (Auto) 2.7 10^3/uL (0.8-4.8) 12/13/21 11:56 [place] # (Auto) 0.5 10^3/uL (0.2-0.9) 12/13/21 11:56 Eos # (Auto) 0.1 10^3/uL (0.0-0.8) 12/13/21 11:56 Baso # (Auto) 0.1 10^3/uL (0.0-0.1) 12/13/21 11:56 Nucleated RBC % (auto) 0 % 12/13/21 11:56 Nucleated RBCs # 0.0 /100WBC 12/13/21 11:56 Sodium 143 mmol/L (136-145) 12/13/21 11:56 Potassium 3.8 mmol/L (3.5-5.1) 12/13/21 11:56 Chloride 103 mmol/L (98-107) 12/13/21 11:56 Carbon Dioxide 29 mmol/L (22-29) 12/13/21 11:56 Anion Gap 14.8 (5-19) 12/13/21 11:56 BUN 18 mg/dL (8-23) 12/13/21 11:56 Creatinine 0.7 mg/dL (0.5-0.9) 12/13/21 11:56 GFR Calculation 85.4 mL/min (90-130) L 12/13/21 11:56 Glucose 68 mg/dL (65-115) 12/13/21 11:56 Calculated Osmolality 296 mOsm/kg (285-295) H 12/13/21 11:56 Calcium 10.0 mg/dL (8.5-10.5) 12/13/21 11:56 Magnesium 2.1 mg/dL (1.7-2.3) 12/13/21 13:31 Total Bilirubin 0.3 mg/dL (0.15-1.2) 12/13/21 11:56 AST 16 U/L (0-32) 12/13/21 11:56 ALT 14 U/L (0-33) 12/13/21 11:56 Alkaline Phosphatase 78 U/L (35-105) 12/13/21 11:56 Troponin T Baseline 8 ng/L (0-10) 12/13/21 11:56 Troponin T 120 Minute 6.46 ng/L (0-10) 12/13/21 13:31 Delta Troponin T -1.54 ABS# (0-10) L 12/13/21 13:31 Total Protein 7.4 g/dL (6.6-8.7) 12/13/21 11:56 Albumin 4.5 g/dL (3.5-5.2) 12/13/21 11:56 Globulin 2.9 g/dL (1.3-4.6) 12/13/21 11:56 Discharge Plan Discharge Patient Disposition: Home Clinical Impression: Bigeminal rhythm, Bradycardia, Atypical chest pain Condition: Stable Prescriptions: No Action gabapentin 300 mg capsule 300 mg PO TID alprazolam [Xanax] 0.5 mg tablet 0.5 mg PO BID oxycodone-acetaminophen [Percocet] 10-325 mg tablet 1 tab PO TID PRN (Reason: Pain) (DME) night splint See Rx Instructions .Route .MEDSUPPLY Qty: 1 0RF Rx Instructions: As directed oxybutynin chloride 5 mg tablet 5 mg PO DAILY azelastine 137 mcg (0.1 %) aerosol,spray 2 spray intranasal BID PRN (Reason: Allergy Symptoms) Rx Instructions: administer into each nostril triamcinolone acetonide 0.5 % cream 1 applic topical BID PRN (Reason: Rash) valacyclovir [Valtrex] 500 mg tablet 500 mg PO DAILY bisacodyl [Dulcolax (bisacodyl)] 5 mg tablet,delayed release (DR/EC) 5 mg PO DIRECTED Rx Instructions: 6x a day furosemide 20 mg tablet 20 mg PO DAILY PRN (Reason: Edema) albuterol sulfate 90 mcg/actuation Hfa Aerosol Inhaler 2 puff INHALATION QID PRN (Reason: Shortness Of Breath Or Wheezing) ondansetron 4 mg tablet,disintegrating 4 mg PO BID PRN (Reason: Nausea And Vomiting) cetirizine 10 mg Tablet 10 mg PO DAILY omeprazole 40 mg Capsule,Delayed Release(Dr/Ec) 40 mg PO DAILY nicotine 14 mg/24 hr Patch 24 Hour 1 patch transdermal Q24H Qty: 90 0RF Pacerone 200 mg Tablet 200 mg PO Q12H Qty: 180 0RF nicotine (polacrilex) 4 mg Lozenge 4 mg mucous membrane Q2H PRN (Reason: Nicotine Cravings) Qty: 90 3RF bupropion HCl 100 mg tablet 100 mg PO DAILY Qty: 1 0RF Adult Aspirin Regimen 81 mg tablet,delayed release (DR/EC) 81 mg PO DAILY Qty: 90 0RF Discharge Orders: Discharge ED (Routine); Ordered 12/13/21 Ordered By: Inna Fraser Referrals: Tulio Valente [Primary Care Provider] - Discharge Diet: Usual diet Discharge Activity: Resume usual activity Patient Instructions: Opioid Safety, Pain Management Activity Restrictions/Additional Instructions: Keep your appointment with the tray line worker that is scheduled tomorrow. They will discuss treatment options with you at that time. They can get the heart monitor report from your doctor's office. Return to the ER if worsening symptoms. The number associated with your pulse is less important than how you feel. As long as you feel relatively okay with even a low heart rate, you do not need to return to the ER. However increased chest pain, shortness of breath, lightheadedness or passing out are obviously concerning and should cause you to come back. Coding Level of Care Code ED [facility] Pathologist for [facility] Fwd Exam Comprehensive
[2021-12-13 12:26] LABS: Alanine Aminotransferase 14 U/L (0-33); Albumin Level 4.5 g/dL (3.5-5.2); Alkaline Phosphatase 78 U/L (35-105); Anion Gap 14.8 (5-19); Aspartate Amino Transferase 16 U/L (0-32); Blood Urea Nitrogen 18 mg/dL (8-23); Carbon Dioxide 29 mmol/L (22-29); Chloride 103 mmol/L (98-107); Globulin 2.9 g/dL (1.3-4.6); Glomerular Filtration Rate 85.4 mL/min (90-130); Glucose 68 mg/dL (65-115); Osmolality Calculated 296 mOsm/kg (285-295); Potassium 3.8 mmol/L (3.5-5.1); Sodium 143 mmol/L (136-145); Total Bilirubin 0.3 mg/dL (0.15-1.2); Total Protein 7.4 g/dL (6.6-8.7)
[2021-12-13 12:27] LABS: Troponin(5th) Baseline 8 ng/L (0-10)
[2021-12-13 14:03] LABS: Magnesium 2.1 mg/dL (1.7-2.3)
[2021-12-13 14:07] LABS: Troponin 5 2HR 6.46 ng/L (0-10)
[2021-12-13 14:18] LABS: Troponin 5 2HR Delta -1.54 ABS# (0-10)
== END 2021-12-13 15:42 | disposition home or self-care (01) ==
PROVIDERS: Emergency Provider Emergency Medicine; PCP Family Medicine
DX: R00.8 Other abnormalities of heart beat (principal); R00.1 Bradycardia, unspecified; R07.89 Other chest pain
CPT/HCPCS: 71045; 80053; 83735; 84484; 85025; 93005; 99285

== ENCOUNTER → 2021-12-14 10:56 | Outpatient (BNVA) | payer MEDICAID, SELFPAY | PROVIDERS: PCP Family Medicine; Visit Provider Nurse Practitioner Family | DX: I49.8 Other specified cardiac arrhythmias (principal); R07.9 Chest pain, unspecified | CPT/HCPCS: 93005; 93270; 99213 ==

== ENCOUNTER → 2022-02-23 14:12 | Outpatient (BNVA) | payer MEDICAID, SELFPAY | PROVIDERS: PCP Family Medicine; Visit Provider Podiatrist Foot & Ankle Surgery | DX: M72.2 Plantar fascial fibromatosis (principal); X58.XXXA Exposure to other specified factors, initial encounter; S80.11XA Contusion of right lower leg, initial encounter | CPT/HCPCS: 20550; 73590 ==

== ENCOUNTER → 2022-04-08 15:19 | Outpatient (BNVA) | payer MEDICAID, SELFPAY | PROVIDERS: PCP Family Medicine; Visit Provider Podiatrist Foot & Ankle Surgery | DX: M72.2 Plantar fascial fibromatosis (principal) | CPT/HCPCS: 99213 ==

== ENCOUNTER → 2022-04-22 09:42 | Outpatient (BNVA) | payer MEDICAID, SELFPAY | PROVIDERS: PCP Family Medicine; Referring Provider Podiatrist Foot & Ankle Surgery; Visit Provider Student in an Organized Health Care Education/Training Program | DX: M17.0 Bilateral primary osteoarthritis of knee (principal); Z96.9 Presence of functional implant, unspecified; Z72.0 Tobacco use | CPT/HCPCS: 73560; 73565; 99204; J3301 ==

== ENCOUNTER → 2022-05-13 13:12 | Outpatient (BNVA) | payer MEDICAID, SELFPAY | PROVIDERS: PCP Family Medicine; Visit Provider Podiatrist Foot & Ankle Surgery | DX: M72.2 Plantar fascial fibromatosis (principal) | CPT/HCPCS: 20550 ==

== ENCOUNTER → 2022-06-29 09:38 | Outpatient (BNVA) | payer MEDICAID, SELFPAY | PROVIDERS: PCP Family Medicine; Visit Provider Anesthesiology Pain Medicine | DX: M54.12 Radiculopathy, cervical region (principal); M46.96 Unspecified inflammatory spondylopathy, lumbar region | CPT/HCPCS: 99205 ==

== ENCOUNTER → 2022-07-21 08:49 | Outpatient (BNVA) | payer MEDICAID, SELFPAY | PROVIDERS: PCP Family Medicine; Visit Provider Anesthesiology Pain Medicine | DX: M79.18 Myalgia, other site (principal); M54.12 Radiculopathy, cervical region; M54.9 Dorsalgia, unspecified | CPT/HCPCS: 20553; 99213; J1030; J3490 ==

== ENCOUNTER → 2022-08-25 07:40 | Outpatient (BNVA) | payer MEDICAID, SELFPAY | PROVIDERS: PCP Family Medicine; Visit Provider Podiatrist Foot & Ankle Surgery | DX: S99.912A Unspecified injury of left ankle, initial encounter (principal); S99.922A Unspecified injury of left foot, initial encounter; X50.9XXA Other and unspecified overexertion or strenuous movements or postures, initial encounter | CPT/HCPCS: 73610; 73620; 99213 ==

== ENCOUNTER → 2022-09-15 09:42 | Outpatient (BNVA) | payer MEDICAID, SELFPAY | PROVIDERS: PCP Family Medicine; Visit Provider Podiatrist Foot & Ankle Surgery | DX: S99.912A Unspecified injury of left ankle, initial encounter (principal); S82.832A Other fracture of upper and lower end of left fibula, initial encounter for closed fracture; X50.1XXA Overexertion from prolonged static or awkward postures, initial encounter | CPT/HCPCS: 73610 ==

== ENCOUNTER 2022-09-15 14:19 | Outpatient (CLI) | payer MEDICAID, SELFPAY | END 2022-09-15 14:20 | disposition home or self-care (01) | LOC: SPT 14:19 | PROVIDERS: PCP Family Medicine; Visit Provider Podiatrist Foot & Ankle Surgery | DX: Z46.89 Encounter for fitting and adjustment of other specified devices (principal); S82.832A Other fracture of upper and lower end of left fibula, initial encounter for closed fracture; X58.XXXA Exposure to other specified factors, initial encounter; S99.922D Unspecified injury of left foot, subsequent encounter; S99.912D Unspecified injury of left ankle, subsequent encounter; X58.XXXD Exposure to other specified factors, subsequent encounter | CPT/HCPCS: 97760; 99214; L4361 ==

== ENCOUNTER → 2022-10-12 13:27 | Outpatient (BNVA) | payer MEDICAID, SELFPAY | PROVIDERS: PCP Family Medicine; Visit Provider Podiatrist Foot & Ankle Surgery | DX: S82.832A Other fracture of upper and lower end of left fibula, initial encounter for closed fracture (principal); X50.1XXA Overexertion from prolonged static or awkward postures, initial encounter | CPT/HCPCS: 73610; 99213 ==

== ENCOUNTER 2022-12-03 09:15 | Outpatient (CLI) | payer MEDICAID, SELFPAY ==
--- NOTE | 2022-12-03 09:20 | MR_ITS ---
WS: [id number] MRI CERVICAL SPINE NONCONTRAST TECHNIQUE: Sagittal T1, T2 and STIR imaging. Axial T2, gradient, and fiesta imaging. CLINICAL INFORMATION: M54.12 - Radiculopathy, cervical region COMPARISON: None. FINDINGS: Straightening of the normal cervical doses. Mild spondylitic changes. No high-grade central canal concha nosis. Cord signal is normal. C2-C3: Normal. C3-C4: Mild facet arthropathy. Mild LEFT foraminal narrowing. C4-C5: Disc osteophyte complex with endplate ridging. Mild facet arthropathy. Spinal canal and forame n are patent. C5-C6: Disc osteophyte complex with endplate ridging. Mild facet arthropathy. Spinal canal is patent. Mild RIGHT foraminal narrowing. C6-C7: Disc osteophyte complex with endplate ridging. Mild RIGHT and no significant LEFT foraminal na rrowing. Spinal canal is patent. Mild facet arthropathy. C7-T1: Normal. Visualized brain stem structures: Normal. Prevertebral soft tissues: Normal. IMPRESSION: 1. Mild cervical curve. Mild spondylitic changes. 2. Disc osteophyte complexes C5-C6 and C6-C7 with slight effacement of the ventral thecal sac. 3. Mild RIGHT C5-C6 and RIGHT C6-C7 bony foraminal narrowing. 4. Mild to moderate facet arthropathy C4-C5 C5-C6 and C6-C7.
== END 2022-12-03 09:16 | disposition home or self-care (01) ==
PROVIDERS: PCP Family Medicine; Visit Provider Anesthesiology Pain Medicine
DX: M47.22 Other spondylosis with radiculopathy, cervical region (principal); M48.02 Spinal stenosis, cervical region; M25.78 Osteophyte, vertebrae
CPT/HCPCS: 72141; 99205

== ENCOUNTER → 2022-12-09 10:58 | Outpatient (BNVA) | payer MEDICAID, SELFPAY | PROVIDERS: PCP Family Medicine; Visit Provider Anesthesiology Pain Medicine | DX: M54.12 Radiculopathy, cervical region; M47.812 Spondylosis without myelopathy or radiculopathy, cervical region; M48.02 Spinal stenosis, cervical region; Z12.4 Encounter for screening for malignant neoplasm of cervix | CPT/HCPCS: 87624; 99214 ==

== ENCOUNTER → 2023-01-06 14:49 | Outpatient (BNVA) | payer MEDICAID, SELFPAY | PROVIDERS: PCP Family Medicine; Visit Provider Anesthesiology Pain Medicine | DX: M47.812 Spondylosis without myelopathy or radiculopathy, cervical region (principal) | CPT/HCPCS: 64490; 64491; 64492; J3490 ==

== ENCOUNTER → 2023-01-20 13:07 | Outpatient (BNVA) | payer MEDICAID, SELFPAY | PROVIDERS: PCP Family Medicine; Visit Provider Anesthesiology Pain Medicine | DX: M47.812 Spondylosis without myelopathy or radiculopathy, cervical region (principal) | CPT/HCPCS: 64490; 64491; 64492; J3490 ==

== ENCOUNTER → 2023-01-26 08:30 | Outpatient (BNVA) | payer MEDICAID, SELFPAY | PROVIDERS: PCP Family Medicine; Visit Provider Anesthesiology Pain Medicine | DX: M54.12 Radiculopathy, cervical region; M47.816 Spondylosis without myelopathy or radiculopathy, lumbar region; M47.817 Spondylosis without myelopathy or radiculopathy, lumbosacral region | CPT/HCPCS: 99214 ==

== ENCOUNTER → 2023-06-13 11:31 | Outpatient (BNVA) | payer MEDICAID, SELFPAY | PROVIDERS: PCP Family Medicine; Visit Provider Podiatrist Foot & Ankle Surgery | DX: M72.2 Plantar fascial fibromatosis (principal) | CPT/HCPCS: 20550; J1100; J3301; J3490 ==

== ENCOUNTER → 2023-08-30 10:18 | Outpatient (BNVA) | payer MEDICAID, SELFPAY | PROVIDERS: PCP Family Medicine; Visit Provider Podiatrist Foot & Ankle Surgery | DX: M76.61 Achilles tendinitis, right leg; M72.2 Plantar fascial fibromatosis | CPT/HCPCS: 73630; 99213 ==

== ENCOUNTER → 2023-10-10 07:43 | Outpatient (BNVA) | payer MEDICAID, SELFPAY | PROVIDERS: PCP Family Medicine; Visit Provider Podiatrist Foot & Ankle Surgery | DX: M72.2 Plantar fascial fibromatosis; M76.61 Achilles tendinitis, right leg | CPT/HCPCS: 99213 ==